=== PATIENT | female | born 1970 | race Caucasian/White ===

== ENCOUNTER 2019-01-24 03:50 | Inpatient (IN) | payer OTHER ==
[~2019-01-24] VITALS: Ht 167.6 cm; Wt 99.3 kg
[~2019-01-24 03:50] MED LIST: HCTZ; METHI10 PO; METO100 PO; METOPROLOL; NEOPOLHCSU AD; PAXIL
[2019-01-24] MEDS ORDERED: PAXIL40 MG PO (04:02)
[2019-01-24 05:02] LABS: Source, Urine Clean Catch
[2019-01-24 05:05] LABS: BASOPHILS ABSOLUTE AUTO 0.05 K/mm3 (0.00-0.23); BASOPHILS PERCENT AUTO 0 % (0-2); EOSINOPHILS PERCENT AUTO 1 % (0-6); Hemoglobin 14.2 g/dL (11.5-16.0); IMMATURE GRAN ABSOLUTE AUTO 0.03 K/mm3 (0.00-0.10); IMMATURE GRAN PERCENT AUTO 0 % (0-1); LYMPHOCYTES ABSOLUTE AUTO 2.08 K/mm3 (0.84-5.20); LYMPHOCYTES PERCENT AUTO 19 % (21-46); MONOCYTES ABSOLUTE AUTO 0.82 K/mm3 (0.16-1.47); MONOCYTES PERCENT AUTO 7 % (4-13); Mean Corpuscular HGB 34.1 pg (26.0-34.0); Mean Corpuscular HGB Conc 33.8 g/dL (31.5-36.5); Mean Corpuscular Volume 101 fL (80-100); Mean Platelet Volume 12.9 fL (9.1-12.4); NEUTROPHILS ABSOLUTE AUTO 8.13 K/mm3 (1.96-9.15); NEUTROPHILS PERCENT AUTO 73 % (41-73); Platelet Count 182 K/mm3 (150-400); RDW Standard Deviation 44.8 fL (35.1-46.3); Red Blood Cell Count 4.17 M/mm3 (3.80-5.20); White Blood Cell Count 11.21 K/mm3 (4.00-11.30)
[2019-01-24 05:07] LABS: Appearance, Urine Hazy (Clear); Bilirubin, Urine Neg (Neg); Blood, Urine Neg (Neg); Color, Urine Yellow (P-Yellow); Glucose Qualitative, Urine Neg (Neg); Ketones, Urine 1+ (Neg); Leukocyte Esterase, Urine 2+ (Neg); Nitrite, Urine Neg (Neg); Protein, Urine Neg (Neg); Specific Gravity, Urine 1.015 (1.003-1.022); Urobilinogen, Urine NORM (Normal)
[2019-01-24 05:18] LABS: U Amphetamine Screen Not Detected; U Barbituate Screen Not Detected; U Benzodiazapine Screen Not Detected; U Buprenorphine Screen Not Detected; U Cannabinoids Screen Not Detected; U Cocaine Screen Not Detected; U Methadone Screen Not Detected; U Methamphetamine Screen Not Detected; U Opiates Screen Not Detected; U Oxycodone Screen Not Detected; U Phencyclidine Screen Not Detected; U Propoxyphene Screen Not Detected
[2019-01-24 05:29] LABS: Alanine Aminotransfer (ALT/SGP 31 U/L (12-78); Albumin, Blood 3.6 g/dL (3.4-5.0); Alk Phos 81 U/L (50-136); Anion Gap 6 mmol/L (6-16); Aspartate Aminotrans (AST/SGOT 15 U/L (12-37); Bilirubin, Total 0.3 mg/dL (0.1-1.0); Blood Urea Nitrogen 10 mg/dL (8-24); CO2, Blood 26 mmol/L (21-32); Chloride, Blood 111 mmol/L (98-108); Creatinine, Blood 0.62 mg/dL (0.40-1.00); Ethanol (Alcohol), Blood, Med <3 mg/dL; Globulin, Blood 3.7 g/dL (2.2-4.0); Glomerular Filtration Rate >60 (60-); Glucose, Blood 111 mg/dL (70-99); Potassium, Blood 4.8 mmol/L (3.5-5.5); Salicylate 3.5 mg/dL (2.8-20.0); Sodium, Blood 143 mmol/L (136-145); Total Protein, Blood 7.3 g/dL (6.4-8.2)
[2019-01-24 05:32] LABS: Thyroid Stimulating Hormone <0.005 uIU/mL (0.360-4.800)
[2019-01-24 05:34] LABS: Bacteria Few /hpf; Red Blood Cells, Urine 0-2 /hpf (0-2); Squamous Epithelial Cells Many /hpf (Few)
[2019-01-24 05:37] LABS: Acetaminophen, Random <2.0 ug/mL (10.0-30.0)
--- NOTE | 2019-01-24 10:14 | NUR ---
ASSUMED CARE PT ARRIVED TO UNIT APPROX 0850 FROM ED. ROOM CLEARED AND ENVIROMENT RISK ASSESSMENT PROCESS COMPLETED PRIOR TO PT ARRIVING TO UNIT. SEE DOCUMENTATION IN PAPER CHART. ADMISSION PROCESS COMPLETED. PT VITAL SIGNS STABLE. DISCUSSED WITH PT ABOUT RISK AND WHAT PRECAUTIONS ARE BEING DONE IN ORDER TO KEEP PT SAFE. DISCUSSED WITH PT ABOUT CONTINOUS MONITORING. PT REPORTS THIS WAS HER FIRST ATTEMTP AT SUICIDE. PT REPORTS AT THIS TIME THAT SHE STILL WISHES SHE WAS . SHE REPORTS THAT HER PLAN IS TO TAKE TOO MANY PILLS TO COMPLETE THIS PROCESS. SHE REPROTS THIS IS HER ONLY PLAN AND SHE HAS NO OTHER PLAN AT THIS TIME. PT REPORTS AT THIS TIME SHE IS WORRIED ABOUT CONTACTING HER PARENTS TO TALK WITH THEM AT THIS TIME. CONTACTED CONTINOUS MONITORING WITH INFORMATION ABOUT PT AND SITUAITON. THEY WILL BE MONITORING. BATHROOM DOOR LOCKED FOR PT SAFETY. ALLOWED PT TO MAKE PHONE CALL WITH STAFF AT BEDSIDE. THEN PHONE REMOVED FROM ROOM. PHYSICIAN CURRENTLY IN ROOM. PT FAMIYL AT BEDSIDE WELL. BED IN LOW POSITION, CALL LIGHT IN REACH AND PT DENIES AYN NEEDS. WILL CONTINUE TO MONITOR.
--- NOTE | 2019-01-24 12:17 | NUR ---
NOTE THIS MORNING PT REPORTS THAT SHE IS LIKELY THAT HER BRAIN IS NOT WORKING RIGHT. SHE REPORTS THAT HER BRAIN IS TRYING TO CONVINCE HERSELF THAT PEOPLE ARE OUT IN THE HALLS LOOKING TO GET HER AND GET HER IN TROUBLE. SHE REPROTS THAT SHE FEELS THAT HER BRAIN IS NOT WORKING RIGHT. LATER: PT PARINOID ABOUT PEOPLE GETTING HER INFORMATION AND USING IT AGAINST HER. WANDERING OUT OF ROOM AND ATTEMPTING TO TAKE TELEMETRY OFF TO LEAVE. INFORMED PT SHE CAN NOT LEAVE R/T/ TWO MD HOLD AND PT STATES SHE IS GOING TO LEAVE ANYWAYS. CALLED [facility] A STAND BY. PT WAS ABLE TO BE DESCILATED AND AGREED TO STAY. A FEW MINUTES LATER PT STATES SHE IS LEAVING AGAIN AND CONTINUES TO ATTEMPT TO WALK OUT OF ROOM. BED ALARM ON, WILL CONTINUE TO MONITOR.
--- NOTE | 2019-01-24 12:35 | NUR ---
DYLAN CONTROLLED. DYLAN CONTROLLED CONTACTED STAFF. GAVE UP DATE ON PT SYMPTOMS. DYLAN CONTROL STAFF REPORS THAT BY NOW PATIENT WOULD HAVE BEEN EXPERIENCES SYMPTOMS BACK ON THE IFNORMATION THEY HAVE THEY REPORT THAT IT IS UNLILELY THAT SHE TOOK SAID MEDICATIONS. THEY REPORT THEY WILL BE CLOSING THEIR CASE WITH THE PATIENT AT THIS TIME.
--- NOTE | 2019-01-24 14:19 | NUR ---
note PT REQUESTED TO CALL FAMILY. FAMILY ARRIVED TO UNIT AND PT ATTEMPTED TO CONVINCE THEM TO TAKE HER HOME. THEY CONTINUALLY REMINDER HER THAT SHE COULD NOT GO HOME AND NEEDED TO STAY HERE TO GET HOME. DISCUSSED WITH HER THE IMPROTANCE OF IT FOR HER SAFETY. PT CONTINUED TO GET INCREASINGLY AGGITATED. AND STATES SHE WANTS TO LEAVE. PT TOOK TELEMETRY OFF. AND BEGAN WALKING DOWN THE [place] PUSHING THROUGH STAFF. ATTEMTPTING TO LEAVE. ATTEMPTED TO CALL [facility] AND WAS NOTIFIED THAT [facility] WAS NOT IN THE BUILDING. PEER STAFF WERE ABLE TO CALM PT DOWN AND AGREED TO GO BACK TO ROOM. PEER STAFF IN ROOM TALKING WITH PT FOR AWHILE. SHORTLY AFTER THIS STAFF MEMBER LEFT PT WALKED OUT. [employer] WAS ABLE TO FOLLWO PT AND CALLED [employer]. [employer] ON THE SITUATION. [employer] NOTIFIED US THAT THEY CONTACTED THE [place] [employer] TO ASSIST.
--- NOTE | 2019-01-24 14:21 | NUR ---
Patient comes out of her room, with her RN telling her to stop and that she needs to go back to her room. Patient is yelling that she can't take it, she is leaving and that no one can stop her. I am charting at the computer near the room and engage patient in the hallway and try to distract her and redirect her thinking. Patient stops and answers some of my questions, patient's 80 year old father is holding her wrist and trying to get her back to the room. Patient is finally talked into returning to her room where I provide anxiety containment and settle her to a discussion about her depression centered around not being able to land a job, about her ideal life and about her spiritism german. Patient pokes her head out of the room a few times but finally remeains in the bed with the covers wrapped around her saying that she is exhausted. A member of the care team, Kait, comes in and I leave to let them talk. I will continue to be available to patient and family.
--- NOTE | 2019-01-24 14:35 | NUR ---
NOTE PT ARRIVED PT TO UNIT ESCORTED BY SECRUITY.
--- NOTE | 2019-01-24 15:40 | NUR ---
NOTE PT CONTINUALLY WALKING TO TALK WITH STAFF ABOUT LEAVING HERE. SHE STATES SHE WILL LEAVE ONE WAY OR ANOTHER. PEER STAFF AND MYSELF ABOUT TO TALK WITH PT AND DISCUSS WHY THIS IS NOT AN OPTION AT THIS TIME. PT CONTINOUS TO DISCUSS THE SAME CONCERNS ABOUT [employer] STAFF MEMBER THAT TALKED WITH HER THIS MORNING. PT WORRIED THAT STAFF MEMBER WILL BE GETTING HER INFORMATION AND "FRAMING" HER. PT CONTINOUS TO BE DELUSIONAL AND PARANOID. WILL CONTINUE TO MONITOR.
--- NOTE | 2019-01-24 16:23 | NUR ---
note RN FROM [facility] CALLED AND TALKED WITH MYSELF. SHE WAS ABLE TO INFORM ME THAT WE NEEDED ON SIGNATURE FROM THE PHYSICIAN AND STATES THAT SHE WAS CURRENTLY TAKING PT PAPER WORKS TO THEIR PHYSICIAN TO REVIEW THE CASE AND THAT THE PHYSICIAN SHOULD BE CALLED TO SPEAK WITH OUR PHYSICIAN BEFORE LONG. SIGNATURE ACHIEVED AND FAXED OVER TO FACILITY. WILL CONTINUE TO MONITOR
--- NOTE | 2019-01-24 17:10 | NUR ---
NOTE PT SLEEPING AT THIS TIME
--- NOTE | 2019-01-24 18:42 | NUR ---
NOTE SPOKE TO RN AT RECIEVING FACILITY. AND RN REPROTS THAT PT HAS BEEN ACCEPTED TO FACILITY . NOTIFIED PMD AND COBRA TRANSFER PROCESS COMPLETED. SECURE TRANSPORT ARRANGED AND WILL BE ARRIVING APPROX. 0. REPORT CALELD TO RECIEVING RN. AND NOTIFIED OF TIME TO BE LEAVING. WILL KEEP FACILITY UPDATED ON WHEN PT DEPARTS FLOOR. WILL CONTINUE TOMONITOR UNTIL PT DEPARTS UNIT WITH PEER STAFF AND SECURE TRANSPROT STAFF.
--- NOTE | 2019-01-24 19:31 | NUR ---
shift summary STILL AWAITING TRANSPORTATION TO ARRIVE TO TAKE PT TO RECIEVING FACILITY. GAVE REPROT TO RN WHO WILL BE TAKING OVER CARE AT THIS TIME. CONTACTED RECIEIVNG FACILTIY AND THEY REPROT THEY DO NOT NEED ANY ADDITIONAL INFORMATION.
--- NOTE | 2019-01-24 19:40 | NUR ---
NOTE PT IV REMOVED AT THIS TIME. TO PREPARE TO TRANSPORT TO RECIEVING FACILITY
--- NOTE | 2019-01-24 20:06 | NUR ---
transportation COMPUTED TOMOGRAPHY TECHNICIAN ARRIVED TO UNIT. ENROBING MACHINE CORDER ABLE TO TALK WITH PT AND PT AGREED TO LEAVE TOTRANSPORT TO NEW FACILITY. PT MEDICALLY STABLE UPON DEPARTING UNIT
== END 2019-01-24 20:00 | DRG 918 ==
LOC: ER 03:50 → EOR 03:51 → PCU 06:13
PROVIDERS: ADMIT Emergency Medicine
DX: T43.222A Poisoning by selective serotonin reuptake inhibitors, intentional self-harm, initial encounter (principal); F33.3 Major depressive disorder, recurrent, severe with psychotic symptoms; T44.7X2A Poisoning by beta-adrenoreceptor antagonists, intentional self-harm, initial encounter; I10 Essential (primary) hypertension; F41.9 Anxiety disorder, unspecified; E05.90 Thyrotoxicosis, unspecified without thyrotoxic crisis or storm; F17.210 Nicotine dependence, cigarettes, uncomplicated
CPT/HCPCS: 80053; 81001; 81025; 84443; 85025; 87077; 87086; 93005; 93010; 99285-25; G0480

== ENCOUNTER 2019-02-04 17:15 | Inpatient (IN) | payer OTHER ==
[~2019-02-04] VITALS: Ht 167.6 cm; Wt 101.2 kg
[~2019-02-04 17:15] MED LIST changes: +PAXIL40 MG PO
[2019-02-04 17:47] LABS: BASOPHILS ABSOLUTE AUTO 0.04 K/mm3 (0.00-0.23); BASOPHILS PERCENT AUTO 0 % (0-2); EOSINOPHILS ABSOLUTE AUTO 0.04 K/mm3 (0.00-0.68); EOSINOPHILS PERCENT AUTO 0 % (0-6); Hematocrit 42.6 % (33.0-51.0); Hemoglobin 14.6 g/dL (11.5-16.0); IMMATURE GRAN ABSOLUTE AUTO 0.04 K/mm3 (0.00-0.10); IMMATURE GRAN PERCENT AUTO 0 % (0-1); LYMPHOCYTES ABSOLUTE AUTO 1.24 K/mm3 (0.84-5.20); LYMPHOCYTES PERCENT AUTO 9 % (21-46); MONOCYTES ABSOLUTE AUTO 0.87 K/mm3 (0.16-1.47); MONOCYTES PERCENT AUTO 6 % (4-13); Mean Corpuscular HGB 33.6 pg (26.0-34.0); Mean Corpuscular HGB Conc 34.3 g/dL (31.5-36.5); Mean Corpuscular Volume 98 fL (80-100); Mean Platelet Volume 12.6 fL (9.1-12.4); NEUTROPHILS ABSOLUTE AUTO 11.38 K/mm3 (1.96-9.15); NEUTROPHILS PERCENT AUTO 84 % (41-73); Platelet Count 203 K/mm3 (150-400); RDW Coefficient Variation 11.8 % (11.7-14.2); RDW Standard Deviation 42.5 fL (35.1-46.3); Red Blood Cell Count 4.35 M/mm3 (3.80-5.20); White Blood Cell Count 13.61 K/mm3 (4.00-11.30)
[2019-02-04] MEDS ORDERED: METO100 PO (17:56)
[2019-02-04 18:17] LABS: Alanine Aminotransfer (ALT/SGP 51 U/L (12-78); Albumin, Blood 3.7 g/dL (3.4-5.0); Albumin/Globulin Ratio 0.8 (0.8-1.8); Alk Phos 84 U/L (50-136); Anion Gap 10 mmol/L (6-16); Aspartate Aminotrans (AST/SGOT 20 U/L (12-37); Bilirubin, Total 0.2 mg/dL (0.1-1.0); Blood Urea Nitrogen 7 mg/dL (8-24); Bun/Creatinine Ratio 11.9 (12.0-20.0); CO2, Blood 23 mmol/L (21-32); Calcium, Blood 8.9 mg/dL (8.5-10.1); Chloride, Blood 104 mmol/L (98-108); Creatinine, Blood 0.59 mg/dL (0.40-1.00); Globulin, Blood 4.4 g/dL (2.2-4.0); Glomerular Filtration Rate >60 (60-); Glucose, Blood 159 mg/dL (70-99); Potassium, Blood 3.7 mmol/L (3.5-5.5); Sodium, Blood 137 mmol/L (136-145); Total Protein, Blood 8.1 g/dL (6.4-8.2); Troponin I <0.015 ng/mL (0.000-0.040)
[2019-02-04 18:23] LABS: Ethanol (Alcohol), Blood, Med <3 mg/dL; Salicylate 1.9 mg/dL (2.8-20.0)
[2019-02-04 18:30] LABS: Acetaminophen, Random <2.0 ug/mL (10.0-30.0)
[2019-02-04 19:04] LABS: U Amphetamine Screen Not Detected; U Barbituate Screen Not Detected; U Benzodiazapine Screen DETECTED; U Buprenorphine Screen Not Detected; U Cannabinoids Screen Not Detected; U Cocaine Screen Not Detected; U Methadone Screen Not Detected; U Methamphetamine Screen Not Detected; U Opiates Screen Not Detected; U Oxycodone Screen Not Detected; U Phencyclidine Screen Not Detected; U Propoxyphene Screen Not Detected
--- NOTE | 2019-02-04 20:35 | NUR ---
ADMIT NOTE: 48 YEAR OLD FEMALE ADMIT TO ICU 3 TO HOSPITALIST SERVICE PER WHEELCHAIR, VIA ED. CIVAL RIGHTS READ AND SIGNED MD HOLD AND CAMERA EXPLAINED TO BRANDY. PLEASEANT COOPERATIVE CALM POLITE GAIT STEADY TO BED. MONITOR PLACED SHOWING SINUS RHYTHM. HEART RATE 80'S. LUNG SOUNDS CLEAR RESPIRATIONS REGULAR AND EASY ON ROOM AIR SPO2 95-97%. ABDOMEN SOFT NON TENDER WITH BOWEL SOUNDS FOUR QUADS. SMALL AMTS DK CHARCOAL STOOL FREQUENTLY PASSING FLATUS. GAIT STEADY WITH MIN. ASSIST. SKIN WARM/DRY PEDAL PULSES PRESENT NO EDEMA NOTED. CONTINUE TO MONITOR AND REPORT CHANGE IN PATIENT CONDITION BLOOD CONSENT AND RELEASE OF MEDICAL INFORMATION COMPLETED
--- NOTE | 2019-02-05 01:25 | NUR ---
DR NOTIFIED HOSPITALIST DR PETTY NOTIFIED AFTER SPEAKING WITH POISON CONTROL ALSO NOTIFIED OF CONTINUES INCREASED B/P. ORDERS NOTED CONTINUE TO MONITOR AND REPORT CHANGE IN PATIENT CONDITION
[2019-02-05 03:03] LABS: BASOPHILS ABSOLUTE AUTO 0.03 K/mm3 (0.00-0.23); BASOPHILS PERCENT AUTO 0 % (0-2); EOSINOPHILS PERCENT AUTO 0 % (0-6); Hematocrit 40.3 % (33.0-51.0); Hemoglobin 13.7 g/dL (11.5-16.0); IMMATURE GRAN ABSOLUTE AUTO 0.07 K/mm3 (0.00-0.10); IMMATURE GRAN PERCENT AUTO 1 % (0-1); LYMPHOCYTES ABSOLUTE AUTO 1.41 K/mm3 (0.84-5.20); LYMPHOCYTES PERCENT AUTO 10 % (21-46); MONOCYTES ABSOLUTE AUTO 0.56 K/mm3 (0.16-1.47); MONOCYTES PERCENT AUTO 4 % (4-13); Mean Corpuscular HGB 33.7 pg (26.0-34.0); Mean Corpuscular Volume 99 fL (80-100); NEUTROPHILS ABSOLUTE AUTO 12.15 K/mm3 (1.96-9.15); NEUTROPHILS PERCENT AUTO 86 % (41-73); Platelet Count 220 K/mm3 (150-400); RDW Coefficient Variation 11.9 % (11.7-14.2); RDW Standard Deviation 43.7 fL (35.1-46.3); Red Blood Cell Count 4.06 M/mm3 (3.80-5.20); White Blood Cell Count 14.22 K/mm3 (4.00-11.30)
[2019-02-05 03:26] LABS: Alanine Aminotransfer (ALT/SGP 45 U/L (12-78); Albumin, Blood 3.4 g/dL (3.4-5.0); Albumin/Globulin Ratio 0.8 (0.8-1.8); Alk Phos 73 U/L (50-136); Anion Gap 9 mmol/L (6-16); Aspartate Aminotrans (AST/SGOT 19 U/L (12-37); Bilirubin, Total 0.3 mg/dL (0.1-1.0); Blood Urea Nitrogen 6 mg/dL (8-24); Bun/Creatinine Ratio 11.3 (12.0-20.0); CO2, Blood 21 mmol/L (21-32); Calcium, Blood 8.7 mg/dL (8.5-10.1); Chloride, Blood 111 mmol/L (98-108); Creatinine, Blood 0.53 mg/dL (0.40-1.00); Free Thyroxine 1.44 ng/dL (0.70-1.60); Glomerular Filtration Rate >60 (60-); Glucose, Blood 138 mg/dL (70-99); Potassium, Blood 3.8 mmol/L (3.5-5.5); Salicylate <1.7 mg/dL (2.8-20.0); Sodium, Blood 141 mmol/L (136-145); Total Protein, Blood 7.4 g/dL (6.4-8.2)
[2019-02-05 03:28] LABS: Thyroid Stimulating Hormone <0.005 uIU/mL (0.360-4.800); Triiodothyronine, Free 3.32 pg/mL (2.18-3.98)
--- NOTE | 2019-02-05 06:02 | NUR ---
SHIFT SUMMARY HAS NOT RESTED ALL NOC CALLS OUT FREQUENTLY OR USES CALL LIGHT. MONITOR INTACT SHOWING SINUS RHYTHM HEART RATE 80'S. LUNGS SOUNDS CLEAR. RESPRIATIONS REGULAR AND EASY ON ROOM AIR. SPOT CHECK SPO2 95+97% ABDOMEN SOFT WITH BOWEL SOUNDS FOUR QUADS. VOIDS KARYN CLEAR URINE. PASSES FLATUS. SKIN WARM/DRY/INTACT NO EDEMA NOTED. PERIODS OF ANXIETY "I"m SCARED" "CAN YOU STAY IN HERE WITH ME?" GAIT STEADY TO TOILET . TOLERATES CLEAR LIQUIDS WELL. CONTINUE TO MONITOR AND REPORT CHANGE IN PATIENT CONDITION
--- NOTE | 2019-02-05 07:48 | NUR ---
ASSUMED CARE: RECEIVED REPORT FROM NOC RN. NO ACCUTE DISTRESS NOTED. PT SITTING UP IN THE BED. GREETS AND IS SMILING AT STAFF UPON ENTERING ROOM. PT REQUEST TO GET UP TO THE TOILET WHILE THIS RN IS IN THE ROOM. SHAHAB DRAWN AND PT GETS UP TO THE TOILET INDEPENDENTLY MANAGING CORDS INDEPENDENTLY, GAIT IS STEADY. THIS RN EDUCATES PT ABOUT BEOMG ON CAMERA. THIR RN GIVES PERMISSION FOR PT TO GET UP TO THE TOILET INDEPENDENTLY WITHOUT STAFF IN THE ROOM. LONG PT IS COOPERATE WITH CARE SHE CAN INDEPENDENTLY CLOSE SHAHAB, USE TOILET, OPEN SHAHAB AND RETURN TO THE BED. EDUCATED ON FALL PREVENTION AND RISK. REMOTE MONITORING AND DOOR PATCHER NOTIFED OF THIS PLAN OF CARE. PT REQUESTING TO BE TAKEN OFF HOLD, EDUCATED DR OSORIO IS THE ONLY ONE ABLE TO DROP THE HOLD. CALL LIGHT IN REACH.
--- NOTE | 2019-02-05 11:50 | NUR ---
DR OSORIO: CALLED TO [facility] CH WOULD BE COMING TO SEE THE PT TODAY. DR OSORIO IN THE ROOM TALKING TO THE PT NOW.
--- NOTE | 2019-02-05 15:00 | NUR ---
PT ARRIVED TO ROOM 350 FROM ICU. ROOM ARRANGED FOR SI. DISPOSABLE CLOTHING PROVIDED FOR PT TO WEAR. MONITERING BY CAMERA. PLEASANT AND COOPERATIVE. COMES TO DOOR TO ASK FOR HELP.
--- NOTE | 2019-02-05 17:56 | NUR ---
SHIFT SUMMARY PT HAS BEEN COOPERATIVE AND ASKING FOR HELP FROM DOORWAY. ATE SUPPER AND WATCHING TV. HAS HAD NO COMMENTS ABOUT SUICIDE OR WANTING HER LIFE TO END.
--- NOTE | 2019-02-06 05:11 | NUR ---
SHIFT SUMMARY PT ON 2 MD HOLD. A/O INDEPENDENT HAPPY CALM COOPERATIVE PLEASANT. HAD FOUL SMELLING DRAINAGE FROM [employer] LOOKING THING UNDER ABD FOLD. DRESSED IT WITH EXUDRY AND MEDIPORE TAPE. SHE WAS ABLE TO SLEEP T/O NIGHT. POLITLY ASKING TO USE BA WHEN SHE NEEDS IT. CALL LIGHT IN REACH.
--- NOTE | 2019-02-06 14:00 | NUR ---
PT HAS BEEN INDEPENDENT IN ROOM. CRYSTAL FROM [facility] WAS CALLED AND REPORT GIVEN. TENTATIVE PLANS FOR PT TO DISCHARGE THERE TODAY. PARENTS HERE TO VISIT EARLIER. CONCERNED ABOUT WHERE PT WAS GOING AND WHEN. PT HAS BEEN CHEERFUL AND APPROPRIATE. SHOWER TAKEN.
[2019-02-06 15:17] LABS: Source, Urine Clean Catch
[2019-02-06 15:28] LABS: Bilirubin, Urine Neg (Neg); Blood, Urine Neg (Neg); Glucose Qualitative, Urine Neg (Neg); Ketones, Urine Neg (Neg); Leukocyte Esterase, Urine Neg (Neg); Nitrite, Urine Neg (Neg); Protein, Urine Neg (Neg); Urobilinogen, Urine NORM (Normal)
[2019-02-06 15:39] LABS: Appearance, Urine Clear (Clear); Color, Urine Pale Yellow (P-Yellow)
--- NOTE | 2019-02-06 18:30 | NUR ---
SECURE TRANSPORT HERE AT 1815 TO PICK PT UP AND TRANSPORT TO [facility]. FAMILY HAD BROUGHT CLOTHING AND TOILETRIES FROM HOME. DISCUSSED WITH PT CONCERN ABOUT GOING THERE WHILE PARENTS ARE TRAVELING [place] AND WHETHER SHE WOULD BE DISCHARGE WITH NOWHERE TO GO. SPOKE WITH SAHARA AND MAVIS RICHMOND AND SHE REPORTED PT WOULD BE ABLE TO STAY TIL PARENTS RETURNED. EXPLAINED TO PT SHE WAS EXPECTED TO REMAIN THERE TIL PARENTS RETURNED AND THAT THE FACILITY WOULD NOT PROVIDE TRANSPORTATION BACK TO [place] AND THAT SHE WOULDN'T GET A CAMEJO TO GET INTO PARENTS HOME WHILE THEY ARE GONE BUT SHE IS TO GET THE MOST BENEFIT FROM THE VIST POSSIBLE. PT AGREEABLE. TO CURB VIA W/C.
== END 2019-02-06 18:25 | DRG 918 ==
LOC: ER 17:15 → ICUE 18:25 → ICUW 18:25 → ICUE 20:03 → ICUW 02-05 12:55 → MEDS 02-05 15:25
PROVIDERS: Emergency Medicine; ADMIT Internal Medicine
DX: T43.222A Poisoning by selective serotonin reuptake inhibitors, intentional self-harm, initial encounter (principal); F33.9 Major depressive disorder, recurrent, unspecified; L03.311 Cellulitis of abdominal wall; T44.7X2A Poisoning by beta-adrenoreceptor antagonists, intentional self-harm, initial encounter; I10 Essential (primary) hypertension; E05.90 Thyrotoxicosis, unspecified without thyrotoxic crisis or storm; F17.210 Nicotine dependence, cigarettes, uncomplicated
CPT/HCPCS: 36415; 71045; 80053; 81003; 81025; 83735; 84439; 84443; 84481; 84484; 85025; 93005; 93010; 96360; 99285-25; G0480; J0360; J1650; J7030; Q0163

== ENCOUNTER 2019-03-16 13:10 | Emergency (ER) | payer OTHER ==
[~2019-03-16] VITALS: Ht 167.6 cm; Wt 104.3 kg
[2019-03-16] MEDS ORDERED: LORA2 PO (14:34)
== END 2019-03-16 14:43 | disposition home or self-care (01) ==
LOC: ER 13:10
DX: F41.9 Anxiety disorder, unspecified (principal); F32.9 Major depressive disorder, single episode, unspecified; E05.90 Thyrotoxicosis, unspecified without thyrotoxic crisis or storm; I10 Essential (primary) hypertension; F17.210 Nicotine dependence, cigarettes, uncomplicated; Z79.899 Other long term (current) drug therapy
CPT/HCPCS: 99282

== ENCOUNTER 2019-03-19 16:07 | Emergency (ER) | payer OTHER ==
[~2019-03-19] VITALS: Ht 167.6 cm; Wt 104.3 kg
[~2019-03-19 16:07] MED LIST changes: +LORA2 PO
[2019-03-19] MEDS ORDERED: RISP1 PO (19:19)
== END 2019-03-19 19:40 | disposition home or self-care (01) ==
LOC: ER 16:07
DX: F32.9 Major depressive disorder, single episode, unspecified (principal); E03.9 Hypothyroidism, unspecified; I10 Essential (primary) hypertension; F17.210 Nicotine dependence, cigarettes, uncomplicated; Z79.899 Other long term (current) drug therapy
CPT/HCPCS: 99284; Q3014

== ENCOUNTER 2019-03-29 09:58 | Observation (INO) | payer OTHER ==
[~2019-03-29] VITALS: Ht 167.6 cm; Wt 104.3 kg
[~2019-03-29 09:58] MED LIST changes: +RISP1 PO
[2019-03-29 10:23] LABS: Source, Urine Voided
[2019-03-29 10:29] LABS: Bilirubin, Urine Neg (Neg); Blood, Urine 1+ (Neg); Glucose Qualitative, Urine Neg (Neg); Ketones, Urine 1+ (Neg); Leukocyte Esterase, Urine 1+ (Neg); Nitrite, Urine Neg (Neg); Protein, Urine 1+ (Neg); Specific Gravity, Urine 1.015 (1.003-1.022); Urobilinogen, Urine 1+ (Normal)
[2019-03-29 10:36] LABS: Appearance, Urine Clear (Clear); Color, Urine Amber (P-Yellow)
[2019-03-29 10:37] LABS: BASOPHILS ABSOLUTE AUTO 0.02 K/mm3 (0.00-0.23); BASOPHILS PERCENT AUTO 0 % (0-2); EOSINOPHILS ABSOLUTE AUTO 0.01 K/mm3 (0.00-0.68); EOSINOPHILS PERCENT AUTO 0 % (0-6); Hematocrit 39.6 % (33.0-51.0); Hemoglobin 13.4 g/dL (11.5-16.0); IMMATURE GRAN ABSOLUTE AUTO 0.02 K/mm3 (0.00-0.10); IMMATURE GRAN PERCENT AUTO 0 % (0-1); LYMPHOCYTES ABSOLUTE AUTO 0.99 K/mm3 (0.84-5.20); LYMPHOCYTES PERCENT AUTO 14 % (21-46); MONOCYTES ABSOLUTE AUTO 0.55 K/mm3 (0.16-1.47); MONOCYTES PERCENT AUTO 8 % (4-13); Mean Corpuscular HGB 32.8 pg (26.0-34.0); Mean Corpuscular HGB Conc 33.8 g/dL (31.5-36.5); Mean Corpuscular Volume 97 fL (80-100); Mean Platelet Volume 11.5 fL (9.1-12.4); NEUTROPHILS ABSOLUTE AUTO 5.45 K/mm3 (1.96-9.15); NEUTROPHILS PERCENT AUTO 77 % (41-73); Platelet Count 245 K/mm3 (150-400); RDW Coefficient Variation 10.7 % (11.7-14.2); RDW Standard Deviation 38.8 fL (35.1-46.3); Red Blood Cell Count 4.08 M/mm3 (3.80-5.20); White Blood Cell Count 7.04 K/mm3 (4.00-11.30)
[2019-03-29 10:38] LABS: Bacteria Few /hpf; Mucus Light (0-Heavy); Squamous Epithelial Cells Mod /hpf (Few)
[2019-03-29 10:51] LABS: U Amphetamine Screen Not Detected; U Barbituate Screen Not Detected; U Benzodiazapine Screen DETECTED; U Buprenorphine Screen Not Detected; U Cannabinoids Screen Not Detected; U Cocaine Screen Not Detected; U Methadone Screen Not Detected; U Methamphetamine Screen Not Detected; U Opiates Screen Not Detected; U Oxycodone Screen Not Detected; U Phencyclidine Screen Not Detected; U Propoxyphene Screen Not Detected
[2019-03-29 10:54] LABS: Alanine Aminotransfer (ALT/SGP 34 U/L (12-78); Albumin, Blood 3.4 g/dL (3.4-5.0); Albumin/Globulin Ratio 0.9 (0.8-1.8); Alk Phos 40 U/L (50-136); Anion Gap 5 mmol/L (6-16); Aspartate Aminotrans (AST/SGOT 13 U/L (12-37); Bilirubin, Total 0.3 mg/dL (0.1-1.0); Blood Urea Nitrogen 7 mg/dL (8-24); Bun/Creatinine Ratio 12.2 (12.0-20.0); CO2, Blood 24 mmol/L (21-32); Calcium, Blood 8.6 mg/dL (8.5-10.1); Chloride, Blood 109 mmol/L (98-108); Creatinine, Blood 0.57 mg/dL (0.40-1.00); Ethanol (Alcohol), Blood, Med <3 mg/dL; Globulin, Blood 3.9 g/dL (2.2-4.0); Glomerular Filtration Rate >60 (60-); Glucose, Blood 114 mg/dL (70-99); Potassium, Blood 4.1 mmol/L (3.5-5.5); Salicylate <1.7 mg/dL (2.8-20.0); Sodium, Blood 138 mmol/L (136-145); Total Protein, Blood 7.3 g/dL (6.4-8.2)
[2019-03-29 11:01] LABS: Acetaminophen, Random <2.0 ug/mL (10.0-30.0)
== END 2019-03-29 13:57 | disposition home or self-care (01) ==
LOC: ER 09:58 → EOR 09:59
PROVIDERS: ADMIT Emergency Medicine
DX: F30.9 Manic episode, unspecified (principal); F41.9 Anxiety disorder, unspecified; S61.512A Laceration without foreign body of left wrist, initial encounter; S61.511A Laceration without foreign body of right wrist, initial encounter; I10 Essential (primary) hypertension; E03.9 Hypothyroidism, unspecified; J45.909 Unspecified asthma, uncomplicated; Z79.899 Other long term (current) drug therapy; Z87.891 Personal history of nicotine dependence; X78.8XXA Intentional self-harm by other sharp object, initial encounter
CPT/HCPCS: 80053; 81001; 81025; 85025; 87086; 99285; G0378; G0480; Q3014

== ENCOUNTER 2019-04-24 13:28 | Observation (INO) | payer OTHER ==
[~2019-04-24] VITALS: Ht 167.6 cm; Wt 104.3 kg
[2019-04-24 14:33] LABS: Source, Urine Clean Catch
[2019-04-24 14:41] LABS: BASOPHILS ABSOLUTE AUTO 0.01 K/mm3 (0.00-0.23); BASOPHILS PERCENT AUTO 0 % (0-2); Bilirubin, Urine Neg (Neg); Blood, Urine Neg (Neg); EOSINOPHILS ABSOLUTE AUTO 0.01 K/mm3 (0.00-0.68); EOSINOPHILS PERCENT AUTO 0 % (0-6); Glucose Qualitative, Urine Neg (Neg); Hematocrit 39.5 % (33.0-51.0); Hemoglobin 13.3 g/dL (11.5-16.0); IMMATURE GRAN ABSOLUTE AUTO 0.01 K/mm3 (0.00-0.10); IMMATURE GRAN PERCENT AUTO 0 % (0-1); Ketones, Urine Neg (Neg); LYMPHOCYTES ABSOLUTE AUTO 0.94 K/mm3 (0.84-5.20); LYMPHOCYTES PERCENT AUTO 17 % (21-46); Leukocyte Esterase, Urine Neg (Neg); MONOCYTES ABSOLUTE AUTO 0.42 K/mm3 (0.16-1.47); MONOCYTES PERCENT AUTO 7 % (4-13); Mean Corpuscular HGB 32.6 pg (26.0-34.0); Mean Corpuscular HGB Conc 33.7 g/dL (31.5-36.5); Mean Corpuscular Volume 97 fL (80-100); Mean Platelet Volume 12.5 fL (9.1-12.4); NEUTROPHILS ABSOLUTE AUTO 4.32 K/mm3 (1.96-9.15); NEUTROPHILS PERCENT AUTO 76 % (41-73); Nitrite, Urine Neg (Neg); Platelet Count 183 K/mm3 (150-400); Protein, Urine 1+ (Neg); RDW Coefficient Variation 10.6 % (11.7-14.2); Red Blood Cell Count 4.08 M/mm3 (3.80-5.20); Specific Gravity, Urine 1.015 (1.003-1.022); Urobilinogen, Urine NORM (Normal); White Blood Cell Count 5.71 K/mm3 (4.00-11.30); pH, Urine 6.5 (5.0-8.0)
[2019-04-24 14:56] LABS: Alanine Aminotransfer (ALT/SGP 39 U/L (12-78); Albumin, Blood 3.2 g/dL (3.4-5.0); Albumin/Globulin Ratio 0.9 (0.8-1.8); Alk Phos 32 U/L (50-136); Anion Gap 7 mmol/L (6-16); Aspartate Aminotrans (AST/SGOT 19 U/L (12-37); Bilirubin, Total 0.3 mg/dL (0.1-1.0); Blood Urea Nitrogen 12 mg/dL (8-24); Bun/Creatinine Ratio 19.4 (12.0-20.0); CO2, Blood 26 mmol/L (21-32); Calcium, Blood 8.5 mg/dL (8.5-10.1); Chloride, Blood 108 mmol/L (98-108); Creatinine, Blood 0.62 mg/dL (0.40-1.00); Ethanol (Alcohol), Blood, Med <3 mg/dL; Globulin, Blood 3.7 g/dL (2.2-4.0); Glomerular Filtration Rate >60 (60-); Glucose, Blood 179 mg/dL (70-99); Potassium, Blood 3.5 mmol/L (3.5-5.5); Salicylate <1.7 mg/dL (2.8-20.0); Sodium, Blood 141 mmol/L (136-145); Total Protein, Blood 6.9 g/dL (6.4-8.2)
[2019-04-24 14:59] LABS: Color, Urine Yellow (P-Yellow)
[2019-04-24 15:00] LABS: Acetaminophen, Random <2.0 ug/mL (10.0-30.0); Appearance, Urine Clear (Clear)
[2019-04-24 15:20] LABS: U Amphetamine Screen Not Detected; U Barbituate Screen Not Detected; U Benzodiazapine Screen Not Detected; U Buprenorphine Screen Not Detected; U Cannabinoids Screen Not Detected; U Cocaine Screen Not Detected; U Methadone Screen Not Detected; U Methamphetamine Screen Not Detected; U Opiates Screen Not Detected; U Oxycodone Screen Not Detected; U Phencyclidine Screen Not Detected; U Propoxyphene Screen Not Detected
[2019-04-24] MEDS ORDERED: LORA2 PO (17:16)
== END 2019-04-24 17:32 | disposition home or self-care (01) ==
LOC: ER 13:28 → EOR 13:29
PROVIDERS: Physician Assistant; ADMIT Emergency Medicine
DX: F31.9 Bipolar disorder, unspecified (principal); F41.9 Anxiety disorder, unspecified; I10 Essential (primary) hypertension; J45.909 Unspecified asthma, uncomplicated; E21.3 Hyperparathyroidism, unspecified; E66.9 Obesity, unspecified; Z68.35 Body mass index [BMI] 35.0-35.9, adult; Z79.899 Other long term (current) drug therapy; Z87.891 Personal history of nicotine dependence
CPT/HCPCS: 36415; 80053; 81025; 84443; 85025; 99285; G0378; G0480

== ENCOUNTER 2019-04-26 10:56 | Observation (INO) | payer OTHER ==
[~2019-04-26] VITALS: Ht 167.6 cm; Wt 104.3 kg
[2019-04-26 11:31] LABS: Source, Urine Clean Catch
[2019-04-26 11:39] LABS: Bilirubin, Urine Neg (Neg); Blood, Urine 1+ (Neg); Glucose Qualitative, Urine Neg (Neg); Ketones, Urine 2+ (Neg); Leukocyte Esterase, Urine 1+ (Neg); Nitrite, Urine Neg (Neg); Protein, Urine 1+ (Neg); Specific Gravity, Urine 1.015 (1.003-1.022); Urobilinogen, Urine 2+ (Normal)
[2019-04-26 11:45] LABS: Appearance, Urine Hazy (Clear); Color, Urine Yellow (P-Yellow)
[2019-04-26 11:47] LABS: Red Blood Cells, Urine 0-2 /hpf (0-2); Squamous Epithelial Cells Mod /hpf (Few)
[2019-04-26 11:48] LABS: Bacteria Mod /hpf
[2019-04-26 11:51] LABS: U Amphetamine Screen Not Detected; U Barbituate Screen Not Detected; U Benzodiazapine Screen Not Detected; U Buprenorphine Screen Not Detected; U Cannabinoids Screen Not Detected; U Cocaine Screen Not Detected; U Methadone Screen Not Detected; U Methamphetamine Screen Not Detected; U Opiates Screen Not Detected; U Oxycodone Screen Not Detected; U Phencyclidine Screen Not Detected; U Propoxyphene Screen Not Detected
[2019-04-26 12:16] LABS: BASOPHILS ABSOLUTE AUTO 0.02 K/mm3 (0.00-0.23); BASOPHILS PERCENT AUTO 0 % (0-2); EOSINOPHILS ABSOLUTE AUTO 0.03 K/mm3 (0.00-0.68); EOSINOPHILS PERCENT AUTO 1 % (0-6); Hematocrit 39.5 % (33.0-51.0); Hemoglobin 13.1 g/dL (11.5-16.0); IMMATURE GRAN ABSOLUTE AUTO 0.01 K/mm3 (0.00-0.10); IMMATURE GRAN PERCENT AUTO 0 % (0-1); LYMPHOCYTES ABSOLUTE AUTO 0.81 K/mm3 (0.84-5.20); LYMPHOCYTES PERCENT AUTO 14 % (21-46); MONOCYTES PERCENT AUTO 5 % (4-13); Mean Corpuscular HGB 32.2 pg (26.0-34.0); Mean Corpuscular HGB Conc 33.2 g/dL (31.5-36.5); Mean Corpuscular Volume 97 fL (80-100); Mean Platelet Volume 12.4 fL (9.1-12.4); NEUTROPHILS ABSOLUTE AUTO 4.78 K/mm3 (1.96-9.15); NEUTROPHILS PERCENT AUTO 80 % (41-73); Platelet Count 198 K/mm3 (150-400); RDW Coefficient Variation 10.8 % (11.7-14.2); RDW Standard Deviation 38.6 fL (35.1-46.3); Red Blood Cell Count 4.07 M/mm3 (3.80-5.20); White Blood Cell Count 5.95 K/mm3 (4.00-11.30)
[2019-04-26 12:35] LABS: Acetaminophen, Random <2.0 ug/mL (10.0-30.0); Alanine Aminotransfer (ALT/SGP 40 U/L (12-78); Albumin, Blood 3.2 g/dL (3.4-5.0); Albumin/Globulin Ratio 0.9 (0.8-1.8); Alk Phos 32 U/L (50-136); Anion Gap 7 mmol/L (6-16); Aspartate Aminotrans (AST/SGOT 19 U/L (12-37); Bilirubin, Total 0.4 mg/dL (0.1-1.0); Blood Urea Nitrogen 12 mg/dL (8-24); Bun/Creatinine Ratio 25.5 (12.0-20.0); CO2, Blood 24 mmol/L (21-32); Calcium, Blood 8.9 mg/dL (8.5-10.1); Chloride, Blood 110 mmol/L (98-108); Creatinine, Blood 0.47 mg/dL (0.40-1.00); Ethanol (Alcohol), Blood, Med <3 mg/dL; Globulin, Blood 3.7 g/dL (2.2-4.0); Glomerular Filtration Rate >60 (60-); Glucose, Blood 121 mg/dL (70-99); Potassium, Blood 3.8 mmol/L (3.5-5.5); Salicylate <1.7 mg/dL (2.8-20.0); Sodium, Blood 141 mmol/L (136-145); Total Protein, Blood 6.9 g/dL (6.4-8.2)
[2019-04-26] MEDS ORDERED: PARO10 PO (13:44)
[2019-04-26] MEDS ORDERED: LORAZEPAM0.5 MG PO (13:47)
[2019-04-26] MEDS ORDERED: REXULTI0.5 MG PO (13:47)
[2019-04-26] MEDS ORDERED: JUNEL FE 24 TA1 EACH PO (13:48)
[2019-04-26 14:56] LABS: Free Thyroxine 4.66 ng/dL (0.70-1.60)
[2019-04-26 14:57] LABS: Triiodothyronine, Free 14.06 pg/mL (2.18-3.98)
== END 2019-04-28 09:22 | disposition home or self-care (01) ==
LOC: ER 10:56 → EOR 10:57
PROVIDERS: Emergency Medicine; ADMIT Emergency Medicine
DX: F33.3 Major depressive disorder, recurrent, severe with psychotic symptoms (principal); S61.512A Laceration without foreign body of left wrist, initial encounter; S61.511A Laceration without foreign body of right wrist, initial encounter; F41.9 Anxiety disorder, unspecified; F17.210 Nicotine dependence, cigarettes, uncomplicated; I10 Essential (primary) hypertension; E03.9 Hypothyroidism, unspecified; J45.909 Unspecified asthma, uncomplicated; Z79.899 Other long term (current) drug therapy; X83.8XXA Intentional self-harm by other specified means, initial encounter
CPT/HCPCS: 12004; 80053; 81001; 81025; 84439; 84443; 84481; 85025; 87086; 90471; 90714; 99285-25; A9270; G0378; G0480; Q3014

== ENCOUNTER 2019-05-12 11:33 | Observation (INO) | payer OTHER ==
[~2019-05-12] VITALS: Ht 167.6 cm; Wt 104.3 kg
[~2019-05-12 11:33] MED LIST changes: +JUNEL FE 24 TA1 EACH PO; +LORAZEPAM0.5 MG PO; +PARO10 PO; +REXULTI0.5 MG PO
[2019-05-12] MEDS ORDERED: METO100ER PO ×2 (15:07→17:32)
[2019-05-12] MEDS ORDERED: PARO10 PO (15:08)
[2019-05-12] MEDS ORDERED: CLIMARA1 EACH TOP ×2 (15:09→17:33)
[2019-05-12] MEDS ORDERED: Vistaril50 MG PO (15:10)
[2019-05-12] MEDS ORDERED: METHI10 PO ×2 (15:10→17:32)
[2019-05-12 15:11] LABS: Source, Urine Clean Catch
[2019-05-12] MEDS ORDERED: Risperidone1 MG PO (15:11)
[2019-05-12] MEDS ORDERED: LATUDA60 MG PO (15:11)
[2019-05-12 15:14] LABS: Bilirubin, Urine Neg (Neg); Blood, Urine Neg (Neg); Glucose Qualitative, Urine Neg (Neg); Ketones, Urine Neg (Neg); Leukocyte Esterase, Urine Neg (Neg); Nitrite, Urine Neg (Neg); Protein, Urine Neg (Neg); Specific Gravity, Urine 1.015 (1.003-1.022); Urobilinogen, Urine NORM (Normal)
[2019-05-12 15:18] LABS: BASOPHILS ABSOLUTE AUTO 0.02 K/mm3 (0.00-0.23); BASOPHILS PERCENT AUTO 0 % (0-2); EOSINOPHILS ABSOLUTE AUTO 0.02 K/mm3 (0.00-0.68); EOSINOPHILS PERCENT AUTO 0 % (0-6); IMMATURE GRAN PERCENT AUTO 0 % (0-1); LYMPHOCYTES ABSOLUTE AUTO 1.28 K/mm3 (0.84-5.20); LYMPHOCYTES PERCENT AUTO 21 % (21-46); MONOCYTES ABSOLUTE AUTO 0.41 K/mm3 (0.16-1.47); MONOCYTES PERCENT AUTO 7 % (4-13); Mean Corpuscular HGB Conc 34.1 g/dL (31.5-36.5); Mean Corpuscular Volume 94 fL (80-100); Mean Platelet Volume 11.9 fL (9.1-12.4); NEUTROPHILS ABSOLUTE AUTO 4.24 K/mm3 (1.96-9.15); NEUTROPHILS PERCENT AUTO 71 % (41-73); Platelet Count 217 K/mm3 (150-400); RDW Standard Deviation 37.2 fL (35.1-46.3); Red Blood Cell Count 4.37 M/mm3 (3.80-5.20); White Blood Cell Count 5.97 K/mm3 (4.00-11.30)
[2019-05-12 15:29] LABS: Appearance, Urine Clear (Clear); Color, Urine Yellow (P-Yellow)
[2019-05-12 15:36] LABS: U Amphetamine Screen Not Detected; U Barbituate Screen Not Detected; U Benzodiazapine Screen Not Detected; U Cannabinoids Screen Not Detected; U Cocaine Screen Not Detected; U Methadone Screen Not Detected; U Methamphetamine Screen Not Detected; U Opiates Screen Not Detected; U Phencyclidine Screen Not Detected
[2019-05-12 15:37] LABS: U Buprenorphine Screen Not Detected; U Oxycodone Screen Not Detected; U Propoxyphene Screen Not Detected
[2019-05-12 15:38] LABS: Alanine Aminotransfer (ALT/SGP 43 U/L (12-78); Albumin, Blood 3.3 g/dL (3.4-5.0); Albumin/Globulin Ratio 0.9 (0.8-1.8); Alk Phos 34 U/L (50-136); Anion Gap 7 mmol/L (6-16); Aspartate Aminotrans (AST/SGOT 20 U/L (12-37); Bilirubin, Total 0.3 mg/dL (0.1-1.0); Blood Urea Nitrogen 9 mg/dL (8-24); Bun/Creatinine Ratio 21.4 (12.0-20.0); CO2, Blood 24 mmol/L (21-32); Chloride, Blood 110 mmol/L (98-108); Creatinine, Blood 0.42 mg/dL (0.40-1.00); Ethanol (Alcohol), Blood, Med <3 mg/dL; Globulin, Blood 3.8 g/dL (2.2-4.0); Glomerular Filtration Rate >60 (60-); Glucose, Blood 103 mg/dL (70-99); Potassium, Blood 4.1 mmol/L (3.5-5.5); Salicylate <1.7 mg/dL (2.8-20.0); Sodium, Blood 141 mmol/L (136-145); Total Protein, Blood 7.1 g/dL (6.4-8.2)
[2019-05-12 15:44] LABS: Acetaminophen, Random <2.0 ug/mL (10.0-30.0)
[2019-05-12] MEDS ORDERED: JUNEL FE 24 TA1 EACH (15:52)
[2019-05-12] MEDS ORDERED: JUNEL FE 24 TA1 EACH PO (15:53)
[2019-05-12] MEDS ORDERED: Paxil40 MG PO (17:30)
[2019-05-12] MEDS ORDERED: LORAZEPAM0.5 MG PO (17:34)
== END 2019-05-14 15:55 | disposition home or self-care (01) ==
LOC: ER 11:33 → EOR 11:34
PROVIDERS: Physician Assistant; ADMIT Emergency Medicine
DX: F33.9 Major depressive disorder, recurrent, unspecified (principal); E03.9 Hypothyroidism, unspecified; I10 Essential (primary) hypertension; J45.909 Unspecified asthma, uncomplicated; K58.9 Irritable bowel syndrome, unspecified; Z79.899 Other long term (current) drug therapy; Z87.891 Personal history of nicotine dependence
CPT/HCPCS: 36415; 80053; 81003; 81025; 85025; 99285; G0378; G0480

== ENCOUNTER 2019-05-18 18:28 | Emergency (ER) | payer OTHER ==
[~2019-05-18] VITALS: Ht 170.2 cm; Wt 90.7 kg
[~2019-05-18 18:28] MED LIST changes: +CLIMARA1 EACH TOP; +JUNEL FE 24 TA1 EACH; +LATUDA60 MG PO; +METO100ER PO; +Paxil40 MG PO; +Risperidone1 MG PO; +Vistaril50 MG PO
[2019-05-18 21:08] LABS: BASOPHILS ABSOLUTE AUTO 0.03 K/mm3 (0.00-0.23); BASOPHILS PERCENT AUTO 0 % (0-2); EOSINOPHILS ABSOLUTE AUTO 0.11 K/mm3 (0.00-0.68); EOSINOPHILS PERCENT AUTO 1 % (0-6); Hematocrit 40.1 % (33.0-51.0); Hemoglobin 13.6 g/dL (11.5-16.0); IMMATURE GRAN ABSOLUTE AUTO 0.01 K/mm3 (0.00-0.10); IMMATURE GRAN PERCENT AUTO 0 % (0-1); LYMPHOCYTES ABSOLUTE AUTO 1.95 K/mm3 (0.84-5.20); LYMPHOCYTES PERCENT AUTO 25 % (21-46); MONOCYTES ABSOLUTE AUTO 0.64 K/mm3 (0.16-1.47); MONOCYTES PERCENT AUTO 8 % (4-13); Mean Corpuscular HGB 31.9 pg (26.0-34.0); Mean Corpuscular HGB Conc 33.9 g/dL (31.5-36.5); Mean Corpuscular Volume 94 fL (80-100); Mean Platelet Volume 12.1 fL (9.1-12.4); NEUTROPHILS ABSOLUTE AUTO 4.95 K/mm3 (1.96-9.15); NEUTROPHILS PERCENT AUTO 64 % (41-73); Platelet Count 214 K/mm3 (150-400); RDW Coefficient Variation 10.8 % (11.7-14.2); RDW Standard Deviation 37.2 fL (35.1-46.3); Red Blood Cell Count 4.27 M/mm3 (3.80-5.20); White Blood Cell Count 7.69 K/mm3 (4.00-11.30)
[2019-05-18 21:09] LABS: Source, Urine Clean Catch
[2019-05-18 21:15] LABS: Bilirubin, Urine Neg (Neg); Blood, Urine Neg (Neg); Glucose Qualitative, Urine Neg (Neg); Ketones, Urine Neg (Neg); Leukocyte Esterase, Urine Neg (Neg); Nitrite, Urine Neg (Neg); Protein, Urine Neg (Neg); Urobilinogen, Urine NORM (Normal); pH, Urine 6.5 (5.0-8.0)
[2019-05-18 21:18] LABS: Appearance, Urine Clear (Clear); Color, Urine Yellow (P-Yellow)
[2019-05-18 21:27] LABS: U Amphetamine Screen Not Detected; U Barbituate Screen Not Detected; U Benzodiazapine Screen Not Detected; U Buprenorphine Screen Not Detected; U Cannabinoids Screen Not Detected; U Cocaine Screen Not Detected; U Methadone Screen Not Detected; U Methamphetamine Screen Not Detected; U Opiates Screen Not Detected; U Oxycodone Screen Not Detected; U Phencyclidine Screen Not Detected; U Propoxyphene Screen Not Detected
[2019-05-18 21:30] LABS: Alanine Aminotransfer (ALT/SGP 39 U/L (12-78); Albumin, Blood 3.2 g/dL (3.4-5.0); Albumin/Globulin Ratio 0.8 (0.8-1.8); Alk Phos 43 U/L (50-136); Anion Gap 6 mmol/L (6-16); Aspartate Aminotrans (AST/SGOT 20 U/L (12-37); Bilirubin, Total 0.2 mg/dL (0.1-1.0); Blood Urea Nitrogen 13 mg/dL (8-24); Bun/Creatinine Ratio 21.1 (12.0-20.0); CO2, Blood 24 mmol/L (21-32); Calcium, Blood 8.8 mg/dL (8.5-10.1); Chloride, Blood 109 mmol/L (98-108); Creatinine, Blood 0.62 mg/dL (0.40-1.00); Ethanol (Alcohol), Blood, Med <3 mg/dL; Free Thyroxine 2.27 ng/dL (0.70-1.60); Globulin, Blood 3.9 g/dL (2.2-4.0); Glomerular Filtration Rate >60 (60-); Glucose, Blood 98 mg/dL (70-99); Potassium, Blood 3.7 mmol/L (3.5-5.5); Salicylate <1.7 mg/dL (2.8-20.0); Sodium, Blood 139 mmol/L (136-145); Total Protein, Blood 7.1 g/dL (6.4-8.2)
[2019-05-18 21:32] LABS: Acetaminophen, Random <2.0 ug/mL (10.0-30.0)
== END 2019-05-18 22:20 | disposition home or self-care (01) ==
LOC: ER 18:28
PROVIDERS: Emergency Medicine
DX: F32.9 Major depressive disorder, single episode, unspecified (principal); E05.90 Thyrotoxicosis, unspecified without thyrotoxic crisis or storm; Z79.899 Other long term (current) drug therapy; F41.9 Anxiety disorder, unspecified; I10 Essential (primary) hypertension; Z87.891 Personal history of nicotine dependence
CPT/HCPCS: 80053; 81003; 81025; 84439; 84443; 84481; 85025; 99284; G0480; Q3014

== ENCOUNTER 2019-05-19 17:59 | Observation (INO) | payer OTHER ==
[~2019-05-19] VITALS: Ht 167.6 cm; Wt 51.3 kg
[2019-05-19 19:39] LABS: Source, Urine Clean Catch
[2019-05-19 19:45] LABS: Bilirubin, Urine Neg (Neg); Blood, Urine Neg (Neg); Glucose Qualitative, Urine Neg (Neg); Ketones, Urine Neg (Neg); Leukocyte Esterase, Urine 1+ (Neg); Nitrite, Urine Neg (Neg); Protein, Urine Neg (Neg); Specific Gravity, Urine 1.015 (1.003-1.022); Urobilinogen, Urine NORM (Normal)
[2019-05-19 19:55] LABS: Appearance, Urine Clear (Clear); Color, Urine Yellow (P-Yellow)
[2019-05-19 19:57] LABS: Bacteria Rare /hpf; Red Blood Cells, Urine 0-2 /hpf (0-2); Squamous Epithelial Cells Many /hpf (Few)
[2019-05-19 20:00] LABS: U Amphetamine Screen Not Detected; U Barbituate Screen Not Detected; U Benzodiazapine Screen Not Detected; U Buprenorphine Screen Not Detected; U Cannabinoids Screen Not Detected; U Cocaine Screen Not Detected; U Methadone Screen Not Detected; U Methamphetamine Screen Not Detected; U Opiates Screen Not Detected; U Oxycodone Screen Not Detected; U Phencyclidine Screen Not Detected; U Propoxyphene Screen Not Detected
== END 2019-05-20 12:40 | disposition home or self-care (01) ==
LOC: ER 17:59 → EOR 18:00
PROVIDERS: Physician Assistant; ADMIT Emergency Medicine
DX: F32.3 Major depressive disorder, single episode, severe with psychotic features (principal); I10 Essential (primary) hypertension; E05.90 Thyrotoxicosis, unspecified without thyrotoxic crisis or storm; Z87.891 Personal history of nicotine dependence; Z79.899 Other long term (current) drug therapy
CPT/HCPCS: 81001; 99283; 99285; G0378

== ENCOUNTER 2019-06-10 14:45 | Emergency (ER) | payer OTHER ==
[~2019-06-10] VITALS: Ht 167.6 cm; Wt 104.3 kg
[2019-06-10] MEDS ORDERED: Haloperidol1 MG PO (15:50)
== END 2019-06-10 16:11 | disposition home or self-care (01) ==
LOC: ER 14:45
DX: F32.9 Major depressive disorder, single episode, unspecified (principal); F41.9 Anxiety disorder, unspecified; I10 Essential (primary) hypertension; J45.909 Unspecified asthma, uncomplicated; Z79.899 Other long term (current) drug therapy; Z87.891 Personal history of nicotine dependence
CPT/HCPCS: 99283

== ENCOUNTER → 2019-08-20 | Outpatient (CLI) | payer OTHER ==
[~2019-08-20] MED LIST changes: +Haloperidol1 MG PO
[2019-08-20 12:44] LABS: Hematocrit 36.6 % (33.0-51.0); Hemoglobin 12.7 g/dL (11.5-16.0); Mean Corpuscular HGB 32.4 pg (26.0-34.0); Mean Corpuscular HGB Conc 34.7 g/dL (31.5-36.5); Mean Corpuscular Volume 93 fL (80-100); Mean Platelet Volume 10.2 fL (9.1-12.4); Platelet Count 225 K/mm3 (150-400); RDW Coefficient Variation 12.3 % (11.7-14.2); RDW Standard Deviation 41.6 fL (35.1-46.3); Red Blood Cell Count 3.92 M/mm3 (3.80-5.20); White Blood Cell Count 22.29 K/mm3 (4.00-11.30)
[2019-08-20 12:51] LABS: Anion Gap 12 mmol/L (6-16); Blood Urea Nitrogen 12 mg/dL (8-24); Bun/Creatinine Ratio 14.3 (12.0-20.0); CO2, Blood 23 mmol/L (21-32); Calcium, Blood 8.7 mg/dL (8.5-10.1); Chloride, Blood 101 mmol/L (98-108); Creatinine, Blood 0.84 mg/dL (0.40-1.00); Glomerular Filtration Rate >60 (60-); Glucose, Blood 145 mg/dL (70-99); Potassium, Blood 3.9 mmol/L (3.5-5.5); Sodium, Blood 136 mmol/L (136-145)
[2019-08-20 13:23] LABS: BAND PERCENT MAN 2 % (0-8); BASOPHILS PERCENT MAN 0 % (0-2); EOSINOPHILS PERCENT MAN 0 % (0-6); LYMPHOCYTES ABSOLUTE MAN 0.89 K/mm3 (0.84-5.20); LYMPHOCYTES PERCENT MAN 4 % (21-46); METAMYELOCYTE ABSOLUTE MAN 0.22 K/mm3 (0.00-0.00); METAMYELOCYTE PERCENT MAN 1 % (0-0); MONOCYTES ABSOLUTE MAN 0.44 K/mm3 (0.16-1.47); MONOCYTES PERCENT MAN 2 % (4-13); NEUTROPHILS ABSOLUTE MAN 20.72 K/mm3 (1.96-9.15); SEG NEUTROPHILS PERCENT MAN 91 % (41-73); TOTAL CELLS COUNTED 100
== END ==
LOC: LAB EV 12:40 → LAB SHORT 12:40
PROVIDERS: Family Medicine
DX: E86.0 Dehydration (principal)
CPT/HCPCS: 80048; 85025

== ENCOUNTER → 2019-08-21 | Outpatient (CLI) | payer OTHER ==
[2019-08-21 12:24] LABS: BASOPHILS ABSOLUTE AUTO 0.02 K/mm3 (0.00-0.23); BASOPHILS PERCENT AUTO 0 % (0-2); EOSINOPHILS ABSOLUTE AUTO 0.03 K/mm3 (0.00-0.68); EOSINOPHILS PERCENT AUTO 1 % (0-6); Hemoglobin 10.7 g/dL (11.5-16.0); IMMATURE GRAN ABSOLUTE AUTO 0.02 K/mm3 (0.00-0.10); IMMATURE GRAN PERCENT AUTO 0 % (0-1); LYMPHOCYTES ABSOLUTE AUTO 1.19 K/mm3 (0.84-5.20); LYMPHOCYTES PERCENT AUTO 19 % (21-46); MONOCYTES ABSOLUTE AUTO 0.55 K/mm3 (0.16-1.47); MONOCYTES PERCENT AUTO 9 % (4-13); Mean Corpuscular HGB 31.9 pg (26.0-34.0); Mean Corpuscular HGB Conc 33.4 g/dL (31.5-36.5); Mean Platelet Volume 10.4 fL (9.1-12.4); NEUTROPHILS ABSOLUTE AUTO 4.39 K/mm3 (1.96-9.15); NEUTROPHILS PERCENT AUTO 71 % (41-73); Platelet Count 192 K/mm3 (150-400); RDW Coefficient Variation 12.6 % (11.7-14.2); RDW Standard Deviation 43.7 fL (35.1-46.3); Red Blood Cell Count 3.35 M/mm3 (3.80-5.20)
[2019-08-21 13:14] LABS: Mean Corpuscular Volume 96 fL (80-100)
== END ==
LOC: LAB SHORT 12:20 → LAB EV 12:20
PROVIDERS: Family Medicine
DX: D72.829 Elevated white blood cell count, unspecified (principal)
CPT/HCPCS: 85025

== ENCOUNTER 2019-10-10 18:45 | Inpatient (IN) | payer OTHER ==
[~2019-10-10] VITALS: Ht 167.6 cm; Wt 104.7 kg
[~2019-10-10 18:45] MED LIST changes: -BUPR100ER PO; -ESTRADIOL1 M1 PO; -Metoprolol Tar100 MG PO; -PARO30 PO; -PROG100 PO
[2019-10-10] MEDS ORDERED: PARO30 PO (21:46)
[2019-10-10] MEDS ORDERED: Metoprolol Tar100 MG PO (21:47)
[2019-10-10] MEDS ORDERED: JUNEL FE 24 TA1 EACH PO (21:47)
[2019-10-10] MEDS ORDERED: BUPR100ER PO (21:47)
[2019-10-10] MEDS ORDERED: ESTRADIOL1 M1 PO (21:48)
[2019-10-10] MEDS ORDERED: PROG100 PO (21:48)
[2019-10-11 00:01] LABS: International Normalized Ratio 1.14; Prothrombin Time Results 12.1 Sec (9.7-11.5)
--- NOTE | 2019-10-11 00:28 | NUR ---
ADMIT ASSESSMENT PT ARRIVED FROM THE ER VIA GURNEY. SHE REQUESTED TO STAND AND TRANSFER TO BED HERSELF. SHE DID BECOME SOB WITH THIS TRANSFER, BUT RECOVERED IN BED QUICKLY. PT IS ON RA WITH SATS 97% AT REST. SHE DENIES ANY PAIN TO HER CHEST. STATES THERE IS SOME PAIN TO HER LEFT LEG. SHE RELATES THIS TO HER DVT. WILL CON'T TO MONITOR FOR CHANGES TO HER PAIN. VITALS ARE STABLE AT THIS TIME. WILL START THE HEPARIN GTT ORDERED WELL HER HEP BOLUS. DURING ADMIT PROCESS PT WAS UP TO BSC TWICE TO URINATE. URINE IS CLEAR YELLOW. PT RECIEVED LASIX IV IN ER. PT IS A FAIRLY GOOD HISTORIAN AND WAS ABLE TO GIVE A HEALTH HISTORY. SHE WAS NOT VERY SURE OF THE MEDICATIONS SHE TAKES OR THE AMOUNT. STATES SHE WOULD NEED THE BOTTLES TO SEE HOW SHE TAKES THEM. PT WAS ORIENTED TO CALL LIGHT SYSTEM. WILL CON'T TO MONITOR AND KEEP PT SAFE T/O SHIFT.
--- NOTE | 2019-10-11 05:55 | NUR ---
SHIFT SUMMARY PT OVERALL HAS HAD NO ACUTE CHANGES. HER VITALS CON'T TO BE STABLE. SHE WAS GIVEN MORNING MEDS THIS AM WITH NO ISSUES. SHE STATES SHE WAS FEELING WARM THIS AM AND HAD A SOME DISCOMFORT TO THE LEFT LEG. TYLENOL WAS GIVEN WITH GOOD RESULTS. PT HAS BEEN UP AND DOWN TO BSC SEVERAL TIMES T/O SHIFT. SHE DOES STILL GET SOB WITH ANY EXERTION, BUT SHE DOES RECOVER WELL WHEN BACK IN BED RESTING. PT CON'T TO HAVE HEP RUNNING ORDERED IN RIGHT AC IV. WILL CON'T TO MONITOR AND KEEP PT SAFE TILL REPORT TO ONCOMING RN.
[2019-10-11 06:08] LABS: BASOPHILS ABSOLUTE AUTO 0.01 K/mm3 (0.00-0.23); BASOPHILS PERCENT AUTO 0 % (0-2); EOSINOPHILS ABSOLUTE AUTO 0.01 K/mm3 (0.00-0.68); EOSINOPHILS PERCENT AUTO 0 % (0-6); Hematocrit 27.3 % (33.0-51.0); Hemoglobin 8.8 g/dL (11.5-16.0); IMMATURE GRAN ABSOLUTE AUTO 0.02 K/mm3 (0.00-0.10); IMMATURE GRAN PERCENT AUTO 0 % (0-1); LYMPHOCYTES ABSOLUTE AUTO 1.41 K/mm3 (0.84-5.20); LYMPHOCYTES PERCENT AUTO 20 % (21-46); MONOCYTES ABSOLUTE AUTO 0.43 K/mm3 (0.16-1.47); MONOCYTES PERCENT AUTO 6 % (4-13); Mean Corpuscular HGB 30.3 pg (26.0-34.0); Mean Corpuscular HGB Conc 32.2 g/dL (31.5-36.5); Mean Corpuscular Volume 94 fL (80-100); Mean Platelet Volume 10.3 fL (9.1-12.4); NEUTROPHILS ABSOLUTE AUTO 5.24 K/mm3 (1.96-9.15); NEUTROPHILS PERCENT AUTO 74 % (41-73); Platelet Count 257 K/mm3 (150-400); RDW Coefficient Variation 11.9 % (11.7-14.2); RDW Standard Deviation 40.7 fL (35.1-46.3); White Blood Cell Count 7.12 K/mm3 (4.00-11.30)
[2019-10-11 06:28] LABS: Anion Gap 10 mmol/L (6-16); Blood Urea Nitrogen 9 mg/dL (8-24); Bun/Creatinine Ratio 15.4 (12.0-20.0); CO2, Blood 23 mmol/L (21-32); Calcium, Blood 7.9 mg/dL (8.5-10.1); Chloride, Blood 105 mmol/L (98-108); Creatinine, Blood 0.58 mg/dL (0.40-1.00); Glomerular Filtration Rate >60 (60-); Glucose, Blood 131 mg/dL (70-99); Potassium, Blood 3.1 mmol/L (3.5-5.5); Sodium, Blood 138 mmol/L (136-145)
[2019-10-11 06:54] LABS: Troponin I 0.507 ng/mL (0.000-0.040)
--- NOTE | 2019-10-11 07:15 | NUR ---
BEGINNING OF SHIFT Assumed care of pt at 0700. Bedside report received from Holli DIAZ. Pt A&O x 4. Answers questions appropriately. Follows commands. Verbalizes needs. Pt on room air. SpO2 90% or greater. Lungs dim t/o. SR per monitor. Rate 92. Trace edema RLE. 1+ edema LLE. BP stable. Bed in lowest position. Call light in reach. Pt denies need at this time.
--- NOTE | 2019-10-11 08:00 | NUR ---
CALL PLACED TO DR FERNANDES Notified provider of elevated troponin. Provider states he has already reviewed this and will be entering orders.
--- NOTE | 2019-10-11 09:00 | NUR ---
DR FERNANDES IN TO SEE PT Discussed suspicion for PE. Provider states this is highly unlikely. Orders for echocardiogram to be changed to stat. Provider would like notification when this has been completed. Nursing suction dredge dumping supervisor, Ace DIAZ, notified of stat exam.
--- NOTE | 2019-10-11 10:25 | NUR ---
Urgent echo performed with stat over read requested of Dr. Renee.
--- NOTE | 2019-10-11 10:55 | NUR ---
PROVIDER CONTACT Dr Benavides called unit to discuss echocardiogram reading with this RN. States vegetation and regurgitation of aortic valve. This RN notified provider that pt also has elevated troponin. Provider recommends blood cultures and transfering patient to facility with valve replacement capabilities. He states cardiology consultation is not necessary at this time. This RN placed call to Dr Chavez to discuss recommendations from Dr Renee. Provider states blood cultures to be drawn now. States he will call Dr Renee and enter orders afterwards.
[2019-10-11 13:28] LABS: Hematocrit 25.8 % (33.0-51.0); Hemoglobin 8.3 g/dL (11.5-16.0); Mean Corpuscular HGB 30.4 pg (26.0-34.0); Mean Corpuscular HGB Conc 32.2 g/dL (31.5-36.5); Mean Corpuscular Volume 95 fL (80-100); Mean Platelet Volume 10.5 fL (9.1-12.4); Platelet Count 233 K/mm3 (150-400); RDW Standard Deviation 41.1 fL (35.1-46.3); Red Blood Cell Count 2.73 M/mm3 (3.80-5.20); White Blood Cell Count 6.96 K/mm3 (4.00-11.30)
--- NOTE | 2019-10-11 15:20 | NUR ---
DR FERNANDES IN UNIT Clarified that provider would like IV lasix now. Clarified potassium replacement since more lasix will be given. Provider states to give 40 MEQ IV now, OK if pt receives potassium on transfer to [facility].
--- NOTE | 2019-10-11 18:08 | NUR ---
DISCHARGE SUMMARY Pt discharged from ICU 1750 accompanied by [facility] ambulance for [facility]. Pt departed via gurney, wearing room air. Pt departed with 1st bag of IV potassium infusing along with TKO for dilution as pt was not able to tolerate potassium on its own. Second bag of potassium sent with transport staff who stated they were able to start it when it is due. Pt mobilized self from bed to gurney. This RN placed call to pt's mom per pt's request to update on room assignment and provide unit phone number.
== END 2019-10-11 17:54 | disposition home or self-care (01) | DRG 288 ==
LOC: ER 18:45 → ICUE 22:49 → ICUW 22:49 → ICUE 23:07
PROVIDERS: Hospitalist; Nurse Practitioner Acute Care; ADMIT Internal Medicine
DX: I33.0 Acute and subacute infective endocarditis (principal); I50.31 Acute diastolic (congestive) heart failure; I82.4Z2 Acute embolism and thrombosis of unspecified deep veins of left distal lower extremity; I11.0 Hypertensive heart disease with heart failure; F32.9 Major depressive disorder, single episode, unspecified; E05.90 Thyrotoxicosis, unspecified without thyrotoxic crisis or storm; F41.8 Other specified anxiety disorders; K58.9 Irritable bowel syndrome, unspecified; Z87.891 Personal history of nicotine dependence
CPT/HCPCS: 36415; 71260; 80048; 83880; 84484; 85025; 85027; 85610; 85730; 87040; 87077; 87184; 93005; 93010; 93306; 93971; 96374-59; 99285-25; A9270; A9270-GY; J1644; J1650; J1940; J3370; J3480; J7050; Q9967

== ENCOUNTER → 2019-10-10 | Outpatient (CLI) | payer OTHER ==
[~2019-10-10] MED LIST changes: +BUPR100ER PO; +ESTRADIOL1 M1 PO; +Metoprolol Tar100 MG PO; +PARO30 PO; +PROG100 PO
[2019-10-10 17:55] LABS: BASOPHILS ABSOLUTE AUTO 0.02 K/mm3 (0.00-0.23); BASOPHILS PERCENT AUTO 0 % (0-2); EOSINOPHILS ABSOLUTE AUTO 0.02 K/mm3 (0.00-0.68); EOSINOPHILS PERCENT AUTO 0 % (0-6); Hematocrit 28.1 % (33.0-51.0); Hemoglobin 9.2 g/dL (11.5-16.0); IMMATURE GRAN ABSOLUTE AUTO 0.03 K/mm3 (0.00-0.10); IMMATURE GRAN PERCENT AUTO 0 % (0-1); LYMPHOCYTES ABSOLUTE AUTO 0.89 K/mm3 (0.84-5.20); LYMPHOCYTES PERCENT AUTO 12 % (21-46); MONOCYTES ABSOLUTE AUTO 0.24 K/mm3 (0.16-1.47); MONOCYTES PERCENT AUTO 3 % (4-13); Mean Corpuscular HGB 30.7 pg (26.0-34.0); Mean Corpuscular HGB Conc 32.7 g/dL (31.5-36.5); Mean Corpuscular Volume 94 fL (80-100); Mean Platelet Volume 10.7 fL (9.1-12.4); NEUTROPHILS ABSOLUTE AUTO 5.98 K/mm3 (1.96-9.15); NEUTROPHILS PERCENT AUTO 83 % (41-73); Platelet Count 245 K/mm3 (150-400); RDW Coefficient Variation 12.1 % (11.7-14.2); White Blood Cell Count 7.18 K/mm3 (4.00-11.30)
[2019-10-10 18:14] LABS: Alanine Aminotransfer (ALT/SGP 28 U/L (12-78); Albumin, Blood 2.2 g/dL (3.4-5.0); Albumin/Globulin Ratio 0.5 (0.8-1.8); Alk Phos 37 U/L (40-126); Anion Gap 9 mmol/L (6-16); Aspartate Aminotrans (AST/SGOT 24 U/L (12-37); Bilirubin, Total 0.5 mg/dL (0.1-1.0); Blood Urea Nitrogen 7 mg/dL (8-24); Bun/Creatinine Ratio 10.6 (12.0-20.0); CO2, Blood 23 mmol/L (21-32); Calcium, Blood 8.3 mg/dL (8.5-10.1); Chloride, Blood 103 mmol/L (98-108); Creatinine, Blood 0.66 mg/dL (0.40-1.00); Free Thyroxine 3.51 ng/dL (0.70-1.60); Globulin, Blood 4.6 g/dL (2.2-4.0); Glomerular Filtration Rate >60 (60-); Glucose, Blood 102 mg/dL (70-99); Potassium, Blood 4.3 mmol/L (3.5-5.5); Sodium, Blood 135 mmol/L (136-145); Total Protein, Blood 6.8 g/dL (6.4-8.2)
[2019-10-10 18:21] LABS: Troponin I 0.562 ng/mL (0.000-0.040)
== END | disposition home or self-care (01) ==
PROVIDERS: Physician Assistant Surgical
DX: R06.00 Dyspnea, unspecified (principal)

== ENCOUNTER 2019-10-25 18:52 | Emergency (ER) | payer OTHER ==
[~2019-10-25] VITALS: Ht 167.6 cm; Wt 104.3 kg
[~2019-10-25 18:52] MED LIST changes: +BUPR100ER PO; +ESTRADIOL1 M1 PO; +Metoprolol Tar100 MG PO; +PARO30 PO; +PROG100 PO
== END 2019-10-25 20:30 | disposition home or self-care (01) ==
LOC: ER 18:52
DX: T82.858A Stenosis of other vascular prosthetic devices, implants and grafts, initial encounter (principal); F32.9 Major depressive disorder, single episode, unspecified; F41.9 Anxiety disorder, unspecified; I10 Essential (primary) hypertension; J45.909 Unspecified asthma, uncomplicated; Z87.891 Personal history of nicotine dependence; Z79.899 Other long term (current) drug therapy
CPT/HCPCS: 96523; 99282-25; J2997

== ENCOUNTER 2019-10-29 00:16 | Day surgery (SDC) | payer OTHER | END 2019-10-29 09:30 | disposition home or self-care (01) | LOC: ATC 00:16 | DX: I33.9 Acute and subacute endocarditis, unspecified (principal); I10 Essential (primary) hypertension; F31.9 Bipolar disorder, unspecified; Z88.8 Allergy status to other drugs, medicaments and biological substances; Z88.1 Allergy status to other antibiotic agents | CPT/HCPCS: 99211 ==

== ENCOUNTER 2020-10-16 22:27 | Observation (INO) | payer OTHER ==
[~2020-10-16] VITALS: Ht 167.6 cm; Wt 122.5 kg
[2020-10-16] MEDS ORDERED: DILTIAZEM 24HR240 M5 PO (23:00)
[2020-10-16] MEDS ORDERED: ESTRADIOL TD (23:00)
[2020-10-16 23:23] LABS: BASOPHILS ABSOLUTE AUTO 0.03 K/mm3 (0.00-0.23); BASOPHILS PERCENT AUTO 0 % (0-2); EOSINOPHILS PERCENT AUTO 0 % (0-6); Hematocrit 39.1 % (33.0-51.0); Hemoglobin 13.6 g/dL (11.5-16.0); IMMATURE GRAN ABSOLUTE AUTO 0.05 K/mm3 (0.00-0.10); IMMATURE GRAN PERCENT AUTO 0 % (0-1); LYMPHOCYTES ABSOLUTE AUTO 0.97 K/mm3 (0.84-5.20); LYMPHOCYTES PERCENT AUTO 7 % (21-46); MONOCYTES PERCENT AUTO 2 % (4-13); Mean Corpuscular HGB 32.5 pg (26.0-34.0); Mean Corpuscular HGB Conc 34.8 g/dL (31.5-36.5); Mean Corpuscular Volume 93 fL (80-100); Mean Platelet Volume 11.5 fL (9.1-12.4); NEUTROPHILS ABSOLUTE AUTO 11.75 K/mm3 (1.96-9.15); NEUTROPHILS PERCENT AUTO 90 % (41-73); Platelet Count 200 K/mm3 (150-400); RDW Coefficient Variation 11.5 % (11.7-14.2); RDW Standard Deviation 39.3 fL (35.1-46.3); Red Blood Cell Count 4.19 M/mm3 (3.80-5.20)
[2020-10-16 23:49] LABS: Acetaminophen, Random <2.0 ug/mL (10.0-30.0); Alanine Aminotransfer (ALT/SGP 57 U/L (12-78); Albumin, Blood 3.4 g/dL (3.4-5.0); Albumin/Globulin Ratio 0.8 (0.8-1.8); Alk Phos 57 U/L (50-136); Anion Gap 9 mmol/L (6-16); Aspartate Aminotrans (AST/SGOT 22 U/L (12-37); Bilirubin, Total 0.2 mg/dL (0.1-1.0); Blood Urea Nitrogen 10 mg/dL (8-24); Bun/Creatinine Ratio 13.8 (12.0-20.0); CO2, Blood 20 mmol/L (21-32); Calcium, Blood 8.8 mg/dL (8.5-10.1); Chloride, Blood 107 mmol/L (98-108); Creatinine, Blood 0.72 mg/dL (0.40-1.00); Ethanol (Alcohol), Blood, Med <3 mg/dL; Glomerular Filtration Rate >60 (60-); Glucose, Blood 168 mg/dL (70-99); Potassium, Blood 3.9 mmol/L (3.5-5.5); Salicylate <1.7 mg/dL (2.8-20.0); Sodium, Blood 136 mmol/L (136-145); Thyroid Stimulating Hormone <0.005 uIU/mL (0.360-4.800); Thyroxine (T4) 11.2 ug/dL (4.8-13.9); Total Protein, Blood 7.4 g/dL (6.4-8.2)
[2020-10-16 23:55] LABS: Source, Urine Clean Catch
[2020-10-16 23:58] LABS: Bilirubin, Urine Neg (Neg); Blood, Urine 1+ (Neg); Glucose Qualitative, Urine Neg (Neg); Ketones, Urine 1+ (Neg); Leukocyte Esterase, Urine Neg (Neg); Nitrite, Urine Neg (Neg); Protein, Urine 1+ (Neg); Urobilinogen, Urine NORM (Normal)
[2020-10-17 00:17] LABS: U Amphetamine Screen Not Detected; U Barbituate Screen Not Detected; U Benzodiazapine Screen Not Detected; U Buprenorphine Screen Not Detected; U Cannabinoids Screen Not Detected; U Cocaine Screen Not Detected; U Methadone Screen Not Detected; U Methamphetamine Screen Not Detected; U Opiates Screen Not Detected; U Oxycodone Screen Not Detected; U Phencyclidine Screen Not Detected; U Propoxyphene Screen Not Detected
[2020-10-17 00:18] LABS: Amorphous Light (0-Heavy); Appearance, Urine Hazy (Clear); Bacteria Many /hpf; Color, Urine Yellow (P-Yellow); Mucus Light (0-Heavy); Red Blood Cells, Urine 0-2 /hpf (0-2); Squamous Epithelial Cells Many /hpf (Few)
[2020-10-17 01:10] LABS: Base Excess Venous -5.5 mmol/L; Bicarbonate Venous 20.2 mmol/L (24.0-30.0); PO2 Venous 82.4 mmHg (38-42)
[2020-10-17 01:11] LABS: PCO2 Venous 40.3 mmHg (38-42); pH Blood Venous 7.32 (7.34-7.37)
[2020-10-17 12:50] LABS: SARS-Cov-2 (COVID-19) PCR, MMC NEGATIVE (NEGATIVE)
[2020-10-18] MEDS ORDERED: Ativan1 MG PO (11:26)
== END 2020-10-18 11:33 | disposition home or self-care (01) ==
LOC: ER 22:27 → EOR 22:28
PROVIDERS: Emergency Medicine; ADMIT Emergency Medicine
DX: F33.9 Major depressive disorder, recurrent, unspecified (principal); F41.9 Anxiety disorder, unspecified; I10 Essential (primary) hypertension; J45.909 Unspecified asthma, uncomplicated; Z20.822 Contact with and (suspected) exposure to COVID-19; Z87.891 Personal history of nicotine dependence; Z86.59 Personal history of other mental and behavioral disorders
CPT/HCPCS: 36415; 80053; 81001; 81025; 82803; 84436; 84443; 85025; 87086; 93005; 93010; 99285-25; A9270; G0378; G0480; J7030; Q3014; U0004

== ENCOUNTER 2020-10-30 21:58 | Observation (INO) | payer OTHER ==
[~2020-10-30] VITALS: Ht 167.6 cm; Wt 122.5 kg
[~2020-10-30 21:58] MED LIST changes: +Ativan1 MG PO; +DILTIAZEM 24HR240 M5 PO; +ESTRADIOL TD
[2020-10-30 23:13] LABS: Source, Urine Clean Catch
[2020-10-30 23:22] LABS: BASOPHILS ABSOLUTE AUTO 0.05 K/mm3 (0.00-0.23); BASOPHILS PERCENT AUTO 1 % (0-2); EOSINOPHILS ABSOLUTE AUTO 0.11 K/mm3 (0.00-0.68); EOSINOPHILS PERCENT AUTO 1 % (0-6); Hematocrit 40.4 % (33.0-51.0); Hemoglobin 13.9 g/dL (11.5-16.0); IMMATURE GRAN ABSOLUTE AUTO 0.01 K/mm3 (0.00-0.10); IMMATURE GRAN PERCENT AUTO 0 % (0-1); LYMPHOCYTES ABSOLUTE AUTO 2.76 K/mm3 (0.84-5.20); LYMPHOCYTES PERCENT AUTO 33 % (21-46); MONOCYTES ABSOLUTE AUTO 0.74 K/mm3 (0.16-1.47); MONOCYTES PERCENT AUTO 9 % (4-13); Mean Corpuscular HGB 32.4 pg (26.0-34.0); Mean Corpuscular HGB Conc 34.4 g/dL (31.5-36.5); Mean Corpuscular Volume 94 fL (80-100); Mean Platelet Volume 11.3 fL (9.1-12.4); NEUTROPHILS ABSOLUTE AUTO 4.79 K/mm3 (1.96-9.15); NEUTROPHILS PERCENT AUTO 57 % (41-73); Platelet Count 237 K/mm3 (150-400); RDW Coefficient Variation 11.6 % (11.7-14.2); RDW Standard Deviation 39.7 fL (35.1-46.3); Red Blood Cell Count 4.29 M/mm3 (3.80-5.20); White Blood Cell Count 8.46 K/mm3 (4.00-11.30)
[2020-10-30 23:49] LABS: Bilirubin, Urine Neg (Neg); Blood, Urine 5+ (Neg); Glucose Qualitative, Urine Neg (Neg); Ketones, Urine Neg (Neg); Leukocyte Esterase, Urine 1+ (Neg); Nitrite, Urine Neg (Neg); Protein, Urine 1+ (Neg); Urobilinogen, Urine NORM (Normal)
[2020-10-30 23:52] LABS: Alanine Aminotransfer (ALT/SGP 47 U/L (12-78); Albumin, Blood 3.5 g/dL (3.4-5.0); Albumin/Globulin Ratio 0.8 (0.8-1.8); Alk Phos 55 U/L (50-136); Anion Gap 6 mmol/L (6-16); Aspartate Aminotrans (AST/SGOT 17 U/L (12-37); Bilirubin, Total 0.2 mg/dL (0.1-1.0); Blood Urea Nitrogen 17 mg/dL (8-24); Bun/Creatinine Ratio 19.5 (12.0-20.0); CO2, Blood 25 mmol/L (21-32); Calcium, Blood 9.9 mg/dL (8.5-10.1); Chloride, Blood 107 mmol/L (98-108); Creatinine, Blood 0.87 mg/dL (0.40-1.00); Ethanol (Alcohol), Blood, Med <3 mg/dL; Globulin, Blood 4.2 g/dL (2.2-4.0); Glomerular Filtration Rate >60 (60-); Glucose, Blood 96 mg/dL (70-99); Potassium, Blood 4.2 mmol/L (3.5-5.5); Sodium, Blood 138 mmol/L (136-145); Total Protein, Blood 7.7 g/dL (6.4-8.2)
[2020-10-30 23:53] LABS: Acetaminophen, Random <2.0 ug/mL (10.0-30.0)
[2020-10-30 23:57] LABS: Appearance, Urine Clear (Clear); Color, Urine Yellow (P-Yellow)
[2020-10-30 23:59] LABS: Bacteria Mod /hpf; Squamous Epithelial Cells Mod /hpf (Few)
[2020-10-31] LABS: U Amphetamine Screen Not Detected; U Barbituate Screen Not Detected; U Benzodiazapine Screen Not Detected; U Buprenorphine Screen Not Detected; U Cannabinoids Screen Not Detected; U Cocaine Screen Not Detected; U Methadone Screen Not Detected; U Methamphetamine Screen Not Detected; U Opiates Screen Not Detected; U Oxycodone Screen Not Detected; U Phencyclidine Screen Not Detected; U Propoxyphene Screen Not Detected
[2020-10-31 00:43] LABS: SARS-Cov-2 (COVID-19) PCR, MMC NEGATIVE (NEGATIVE)
== END 2020-10-31 21:25 | disposition home or self-care (01) ==
LOC: ER 21:58 → EOR 21:59
PROVIDERS: ADMIT Emergency Medicine
DX: F29 Unspecified psychosis not due to a substance or known physiological condition (principal); I10 Essential (primary) hypertension; E21.3 Hyperparathyroidism, unspecified; J45.909 Unspecified asthma, uncomplicated; Z87.891 Personal history of nicotine dependence; Z79.899 Other long term (current) drug therapy; Z20.822 Contact with and (suspected) exposure to COVID-19
CPT/HCPCS: 80053; 81001; 85025; 87086; 99285; A9270; G0378; G0480; Q3014; U0004

== ENCOUNTER 2021-03-01 11:46 | Emergency (ER) | payer OTHER ==
[~2021-03-01] VITALS: Ht 165.1 cm; Wt 114.0 kg
[2021-03-01 13:17] LABS: Source, Urine Clean Catch
[2021-03-01 13:25] LABS: BASOPHILS ABSOLUTE AUTO 0.03 K/mm3 (0.00-0.23); BASOPHILS PERCENT AUTO 0 % (0-2); EOSINOPHILS ABSOLUTE AUTO 0.02 K/mm3 (0.00-0.68); EOSINOPHILS PERCENT AUTO 0 % (0-6); Hematocrit 38.6 % (33.0-51.0); Hemoglobin 13.3 g/dL (11.5-16.0); IMMATURE GRAN ABSOLUTE AUTO 0.02 K/mm3 (0.00-0.10); IMMATURE GRAN PERCENT AUTO 0 % (0-1); LYMPHOCYTES ABSOLUTE AUTO 0.89 K/mm3 (0.84-5.20); LYMPHOCYTES PERCENT AUTO 12 % (21-46); MONOCYTES ABSOLUTE AUTO 0.57 K/mm3 (0.16-1.47); MONOCYTES PERCENT AUTO 7 % (4-13); Mean Corpuscular HGB 30.9 pg (26.0-34.0); Mean Corpuscular HGB Conc 34.5 g/dL (31.5-36.5); Mean Corpuscular Volume 90 fL (80-100); Mean Platelet Volume 12.4 fL (9.1-12.4); NEUTROPHILS ABSOLUTE AUTO 6.15 K/mm3 (1.96-9.15); NEUTROPHILS PERCENT AUTO 80 % (41-73); Platelet Count 192 K/mm3 (150-400); RDW Coefficient Variation 11.2 % (11.7-14.2); RDW Standard Deviation 36.4 fL (35.1-46.3); White Blood Cell Count 7.68 K/mm3 (4.00-11.30)
[2021-03-01 13:42] LABS: Alanine Aminotransfer (ALT/SGP 49 U/L (12-78); Albumin, Blood 3.3 g/dL (3.4-5.0); Albumin/Globulin Ratio 0.8 (0.8-1.8); Alk Phos 38 U/L (50-136); Anion Gap 12 mmol/L (6-16); Aspartate Aminotrans (AST/SGOT 27 U/L (12-37); Bilirubin, Total 0.2 mg/dL (0.1-1.0); Blood Urea Nitrogen 19 mg/dL (8-24); CO2, Blood 15 mmol/L (21-32); Calcium, Blood 9.1 mg/dL (8.5-10.1); Chloride, Blood 110 mmol/L (98-108); Ethanol (Alcohol), Blood, Med <3 mg/dL; Globulin, Blood 4.4 g/dL (2.2-4.0); Glomerular Filtration Rate >60 (60-); Glucose, Blood 110 mg/dL (70-99); Potassium, Blood 3.5 mmol/L (3.5-5.5); Salicylate <1.7 mg/dL (2.8-20.0); Sodium, Blood 137 mmol/L (136-145); Total Protein, Blood 7.7 g/dL (6.4-8.2)
[2021-03-01 13:49] LABS: Acetaminophen, Random <2.0 ug/mL (10.0-30.0)
[2021-03-01 13:57] LABS: Bilirubin, Urine Neg (Neg); Blood, Urine Neg (Neg); Glucose Qualitative, Urine 4+ (Neg); Ketones, Urine Neg (Neg); Leukocyte Esterase, Urine Neg (Neg); Nitrite, Urine Neg (Neg); Protein, Urine 1+ (Neg); Specific Gravity, Urine 1.015 (1.003-1.022); Urobilinogen, Urine NORM (Normal); pH, Urine 6.5 (5.0-8.0)
[2021-03-01 14:00] LABS: Appearance, Urine Hazy (Clear); Color, Urine Yellow (P-Yellow)
[2021-03-01 14:01] LABS: WBC Cast 0-2 /lpf (0)
[2021-03-01 14:02] LABS: Bacteria Few /hpf; Red Blood Cells, Urine 0-2 /hpf (0-2); Squamous Epithelial Cells Few /hpf (Few); Transitional Epithelial Cells Few /hpf (0-Rare)
[2021-03-01 14:09] LABS: U Amphetamine Screen Not Detected; U Barbituate Screen Not Detected; U Benzodiazapine Screen Not Detected; U Buprenorphine Screen Not Detected; U Cannabinoids Screen Not Detected; U Cocaine Screen Not Detected; U Methadone Screen Not Detected; U Methamphetamine Screen Not Detected; U Opiates Screen Not Detected; U Oxycodone Screen Not Detected; U Phencyclidine Screen Not Detected; U Propoxyphene Screen Not Detected
[2021-03-01 15:13] LABS: SARS-Cov-2 (COVID-19) PCR, MMC NEGATIVE (NEGATIVE)
== END 2021-03-01 15:22 | disposition home or self-care (01) ==
LOC: ER 11:46
PROVIDERS: Physician Assistant
DX: F41.0 Panic disorder [episodic paroxysmal anxiety] (principal); I10 Essential (primary) hypertension; J45.909 Unspecified asthma, uncomplicated; Z79.899 Other long term (current) drug therapy; Z87.891 Personal history of nicotine dependence; Z20.822 Contact with and (suspected) exposure to COVID-19
CPT/HCPCS: 36415; 80053; 81001; 81025; 85025; 87077; 87086; 87186; 99284; A9270; G0480; Q3014; U0004

== ENCOUNTER 2021-04-03 17:14 | Emergency (ER) | payer OTHER ==
[~2021-04-03] VITALS: Ht 167.6 cm; Wt 104.3 kg
[2021-04-03 17:44] LABS: BASOPHILS ABSOLUTE AUTO 0.04 K/mm3 (0.00-0.23); BASOPHILS PERCENT AUTO 0 % (0-2); EOSINOPHILS ABSOLUTE AUTO 0.01 K/mm3 (0.00-0.68); EOSINOPHILS PERCENT AUTO 0 % (0-6); Hematocrit 40.2 % (33.0-51.0); Hemoglobin 13.8 g/dL (11.5-16.0); IMMATURE GRAN ABSOLUTE AUTO 0.02 K/mm3 (0.00-0.10); IMMATURE GRAN PERCENT AUTO 0 % (0-1); LYMPHOCYTES ABSOLUTE AUTO 1.65 K/mm3 (0.84-5.20); LYMPHOCYTES PERCENT AUTO 18 % (21-46); MONOCYTES ABSOLUTE AUTO 0.72 K/mm3 (0.16-1.47); MONOCYTES PERCENT AUTO 8 % (4-13); Mean Corpuscular HGB 31.2 pg (26.0-34.0); Mean Corpuscular HGB Conc 34.3 g/dL (31.5-36.5); Mean Corpuscular Volume 91 fL (80-100); Mean Platelet Volume 12.4 fL (9.1-12.4); NEUTROPHILS ABSOLUTE AUTO 6.93 K/mm3 (1.96-9.15); NEUTROPHILS PERCENT AUTO 74 % (41-73); Platelet Count 233 K/mm3 (150-400); RDW Standard Deviation 39.8 fL (35.1-46.3); Red Blood Cell Count 4.43 M/mm3 (3.80-5.20); White Blood Cell Count 9.37 K/mm3 (4.00-11.30)
[2021-04-03 18:02] LABS: Alanine Aminotransfer (ALT/SGP 80 U/L (12-78); Albumin, Blood 3.3 g/dL (3.4-5.0); Albumin/Globulin Ratio 0.8 (0.8-1.8); Alk Phos 42 U/L (50-136); Anion Gap 10 mmol/L (6-16); Aspartate Aminotrans (AST/SGOT 36 U/L (12-37); Bilirubin, Total 0.4 mg/dL (0.1-1.0); Blood Urea Nitrogen 10 mg/dL (8-24); Bun/Creatinine Ratio 14.6 (12.0-20.0); CO2, Blood 22 mmol/L (21-32); Chloride, Blood 108 mmol/L (98-108); Creatinine, Blood 0.68 mg/dL (0.40-1.00); Ethanol (Alcohol), Blood, Med <3 mg/dL; Globulin, Blood 4.2 g/dL (2.2-4.0); Glomerular Filtration Rate >60 (60-); Glucose, Blood 116 mg/dL (70-99); Potassium, Blood 3.5 mmol/L (3.5-5.5); Salicylate <1.7 mg/dL (2.8-20.0); Sodium, Blood 140 mmol/L (136-145); Total Protein, Blood 7.5 g/dL (6.4-8.2)
[2021-04-03 18:03] LABS: Acetaminophen, Random <2.0 ug/mL (10.0-30.0)
[2021-04-03 20:47] LABS: Source, Urine Clean Catch
[2021-04-03 20:57] LABS: Bilirubin, Urine Neg (Neg); Blood, Urine Neg (Neg); Glucose Qualitative, Urine Neg (Neg); Ketones, Urine Neg (Neg); Leukocyte Esterase, Urine Neg (Neg); Nitrite, Urine Neg (Neg); Protein, Urine Neg (Neg); Urobilinogen, Urine NORM (Normal); pH, Urine 6.5 (5.0-8.0)
[2021-04-03 21:03] LABS: Appearance, Urine Clear (Clear); Color, Urine Yellow (P-Yellow)
[2021-04-03 21:09] LABS: U Amphetamine Screen Not Detected; U Barbituate Screen Not Detected; U Benzodiazapine Screen Not Detected; U Buprenorphine Screen Not Detected; U Cannabinoids Screen Not Detected; U Cocaine Screen Not Detected; U Methadone Screen Not Detected; U Methamphetamine Screen Not Detected; U Opiates Screen Not Detected; U Oxycodone Screen Not Detected; U Phencyclidine Screen Not Detected; U Propoxyphene Screen Not Detected
== END 2021-04-03 22:48 | disposition home or self-care (01) ==
LOC: ER 17:14
PROVIDERS: Physician Assistant
DX: F32.9 Major depressive disorder, single episode, unspecified (principal); F41.9 Anxiety disorder, unspecified; I10 Essential (primary) hypertension; E03.9 Hypothyroidism, unspecified; J45.909 Unspecified asthma, uncomplicated; Z79.899 Other long term (current) drug therapy
CPT/HCPCS: 36415; 80053; 81003; 81025; 84439; 84443; 85025; 93005; 93010; 99285-25; A9270; G0480

== ENCOUNTER 2021-04-21 11:29 | Inpatient (IN) | payer OTHER ==
[~2021-04-21] VITALS: Ht 167.6 cm; Wt 114.0 kg
[2021-04-21 12:00] LABS: Source, Urine Clean Catch
[2021-04-21 12:03] LABS: Appearance, Urine Clear (Clear); BASOPHILS ABSOLUTE AUTO 0.03 K/mm3 (0.00-0.23); BASOPHILS PERCENT AUTO 1 % (0-2); Bilirubin, Urine Neg (Neg); Blood, Urine 3+ (Neg); Color, Urine Yellow (P-Yellow); EOSINOPHILS ABSOLUTE AUTO 0.06 K/mm3 (0.00-0.68); EOSINOPHILS PERCENT AUTO 1 % (0-6); Glucose Qualitative, Urine Neg (Neg); Hematocrit 39.5 % (33.0-51.0); Hemoglobin 13.4 g/dL (11.5-16.0); IMMATURE GRAN ABSOLUTE AUTO 0.02 K/mm3 (0.00-0.10); IMMATURE GRAN PERCENT AUTO 0 % (0-1); Ketones, Urine Neg (Neg); LYMPHOCYTES ABSOLUTE AUTO 1.21 K/mm3 (0.84-5.20); LYMPHOCYTES PERCENT AUTO 19 % (21-46); Leukocyte Esterase, Urine 2+ (Neg); MONOCYTES ABSOLUTE AUTO 0.48 K/mm3 (0.16-1.47); MONOCYTES PERCENT AUTO 8 % (4-13); Mean Corpuscular HGB 31.5 pg (26.0-34.0); Mean Corpuscular HGB Conc 33.9 g/dL (31.5-36.5); Mean Corpuscular Volume 93 fL (80-100); Mean Platelet Volume 11.2 fL (9.1-12.4); NEUTROPHILS ABSOLUTE AUTO 4.54 K/mm3 (1.96-9.15); NEUTROPHILS PERCENT AUTO 72 % (41-73); Nitrite, Urine Neg (Neg); Platelet Count 227 K/mm3 (150-400); Protein, Urine 1+ (Neg); RDW Coefficient Variation 12.2 % (11.7-14.2); Red Blood Cell Count 4.25 M/mm3 (3.80-5.20); Specific Gravity, Urine 1.015 (1.003-1.022); Urobilinogen, Urine NORM (Normal); White Blood Cell Count 6.34 K/mm3 (4.00-11.30)
[2021-04-21 12:14] LABS: U Amphetamine Screen Not Detected; U Barbituate Screen Not Detected; U Benzodiazapine Screen Not Detected; U Buprenorphine Screen Not Detected; U Cannabinoids Screen Not Detected; U Cocaine Screen Not Detected; U Methadone Screen Not Detected; U Methamphetamine Screen Not Detected; U Opiates Screen Not Detected; U Oxycodone Screen Not Detected; U Phencyclidine Screen Not Detected; U Propoxyphene Screen Not Detected
[2021-04-21 12:17] LABS: Bacteria Rare /hpf; Squamous Epithelial Cells Rare /hpf (Few)
[2021-04-21 12:25] LABS: Alanine Aminotransfer (ALT/SGP 35 U/L (12-78); Albumin/Globulin Ratio 0.7 (0.8-1.8); Alk Phos 46 U/L (50-136); Anion Gap 7 mmol/L (6-16); Aspartate Aminotrans (AST/SGOT 19 U/L (12-37); Bilirubin, Total 0.2 mg/dL (0.1-1.0); Blood Urea Nitrogen 10 mg/dL (8-24); Bun/Creatinine Ratio 18.7 (12.0-20.0); CO2, Blood 24 mmol/L (21-32); Calcium, Blood 9.1 mg/dL (8.5-10.1); Chloride, Blood 107 mmol/L (98-108); Creatinine, Blood 0.54 mg/dL (0.40-1.00); Ethanol (Alcohol), Blood, Med <3 mg/dL; Globulin, Blood 4.4 g/dL (2.2-4.0); Glomerular Filtration Rate >60 (60-); Glucose, Blood 142 mg/dL (70-99); Potassium, Blood 3.7 mmol/L (3.5-5.5); Salicylate <1.7 mg/dL (2.8-20.0); Sodium, Blood 138 mmol/L (136-145); Thyroxine (T4) 19.2 ug/dL (4.8-13.9); Total Protein, Blood 7.4 g/dL (6.4-8.2)
[2021-04-21 12:28] LABS: Thyroid Stimulating Hormone <0.005 uIU/mL (0.360-4.800)
[2021-04-21 16:06] LABS: Influenza A, PCR NEGATIVE (NEGATIVE); Influenza B, PCR NEGATIVE (NEGATIVE); Resp Syncytial Virus, PCR NEGATIVE (NEGATIVE); SARS-Cov-2 (COVID-19) PCR, MMC NEGATIVE (NEGATIVE)
--- NOTE | 2021-04-21 22:27 | NUR ---
PATIENT EXPRESSED THAT SHE DOES HAVE A PLAN TO COMMIT SUICIDE IF SHE WAS TO BE DISCHARGED FROM HOSPITAL, " I WOULD DO WHAT I HAVE IN THE PAST AND TAKE MY MEDICATIONS ALL AT ONCE, UPSET THAT IT NEVER SEEMS TO WORK." SHE ALSO STATED, " I HAVE NO PLANS OF SUICIDE WHILE IN THE HOSPITAL AND I FEEL SAFE HERE.". PATIENT IS ALERT AND ORIENTATED, ABLE TO MAKE NEEDS KNOWN AND WILLING TO TALK ABOUT WHAT SHE IS FEELING. DOESN'T SEEM WITHDRAWN AND HAPPY SHE IS IN THE HOSIPITAL, BED ALARM IS ON AND WEAVER ON THE PATIENT. BATHROOM IS LOCKED, BAGS REMOVED OUT OF ROOM, AND NO UNNECESSARY CORDS IN PLACE. PATIENT WAS EDUCATED ON SAFETY AND HOW TO USE THE CALL LIGHT, PATIENT HAS X 2 GOT OUT OF BED WITHOUT USING CALL LIGHT AND WAS REEDUCATED [employer] SPOTTER LIGHT.
[2021-04-22 03:53] LABS: BASOPHILS ABSOLUTE AUTO 0.02 K/mm3 (0.00-0.23); BASOPHILS PERCENT AUTO 0 % (0-2); EOSINOPHILS ABSOLUTE AUTO 0.09 K/mm3 (0.00-0.68); EOSINOPHILS PERCENT AUTO 2 % (0-6); Hematocrit 35.1 % (33.0-51.0); Hemoglobin 11.7 g/dL (11.5-16.0); IMMATURE GRAN ABSOLUTE AUTO 0.01 K/mm3 (0.00-0.10); IMMATURE GRAN PERCENT AUTO 0 % (0-1); LYMPHOCYTES ABSOLUTE AUTO 1.14 K/mm3 (0.84-5.20); LYMPHOCYTES PERCENT AUTO 24 % (21-46); MONOCYTES ABSOLUTE AUTO 0.44 K/mm3 (0.16-1.47); MONOCYTES PERCENT AUTO 9 % (4-13); Mean Corpuscular HGB 31.4 pg (26.0-34.0); Mean Corpuscular HGB Conc 33.3 g/dL (31.5-36.5); Mean Corpuscular Volume 94 fL (80-100); Mean Platelet Volume 11.3 fL (9.1-12.4); NEUTROPHILS PERCENT AUTO 65 % (41-73); Platelet Count 186 K/mm3 (150-400); RDW Coefficient Variation 12.4 % (11.7-14.2); RDW Standard Deviation 42.7 fL (35.1-46.3); Red Blood Cell Count 3.73 M/mm3 (3.80-5.20)
[2021-04-22 04:21] LABS: Alanine Aminotransfer (ALT/SGP 28 U/L (12-78); Albumin, Blood 2.6 g/dL (3.4-5.0); Albumin/Globulin Ratio 0.7 (0.8-1.8); Alk Phos 37 U/L (50-136); Anion Gap 5 mmol/L (6-16); Aspartate Aminotrans (AST/SGOT 10 U/L (12-37); Bilirubin, Total 0.3 mg/dL (0.1-1.0); Blood Urea Nitrogen 16 mg/dL (8-24); Bun/Creatinine Ratio 31.6 (12.0-20.0); CO2, Blood 25 mmol/L (21-32); Calcium, Blood 9.1 mg/dL (8.5-10.1); Chloride, Blood 110 mmol/L (98-108); Creatinine, Blood 0.51 mg/dL (0.40-1.00); Free Thyroxine 2.33 ng/dL (0.70-1.60); Globulin, Blood 3.8 g/dL (2.2-4.0); Glomerular Filtration Rate >60 (60-); Glucose, Blood 133 mg/dL (70-99); Magnesium, Blood 1.8 mg/dL (1.6-2.4); Potassium, Blood 4.3 mmol/L (3.5-5.5); Sodium, Blood 140 mmol/L (136-145); Total Protein, Blood 6.4 g/dL (6.4-8.2); Triiodothyronine, Free 8.03 pg/mL (2.18-3.98)
--- NOTE | 2021-04-22 05:28 | NUR ---
PATIENT EXPRESSED AT 0400 WHEN GETTING VITALS THIS AM THAT SHE PREFERS NOT TO HALODOL FOR ANXIETY AGAIN FELT LIKE IT INCREASED HER ANXIETY AND " DIDN'T LIKE IT MADE ME FEEL" PATIENT HAD A SNACK AND SOME STOMACH UPSET, IVAN MORRIS PATIENT SLEPT FROM [id number] THIS AM, SEEMS MORE RELAXED THIS AM, NO CHANGES ON SUICIDE IDEATION, FEELS SAFE IN THE HOSPITAL BUT WOULD TRY TO COMMIT SUICIDE IF DISCHARGED, HAS A PLAN, " TAKE ALL MY MEDICATIONS". CALL LIGHT WITHIN REACH, BED ALARM ON, SAFETY CHECK IN ROOM DONE Q4 AND BATHROOM LOCKED. PATIENT HAS BEEN USING CALL LIGHT PRIOR TO ATTEMPTING TO GET OUT OF BED.
--- NOTE | 2021-04-22 08:06 | NUR ---
Pt is refusing her Paxil, and also refusing her athletic monitor at this time. STates she is uncomfortable with the athletic monitor, and also doesn't want to take the paxil because she is afraid it will make her feel bad. States she thinks it will interfere with the anti anxiety medication she had yesterday.
--- NOTE | 2021-04-22 10:30 | NUR ---
Dr. Mejia spoke with pt, and he told me that she was agreeable to take her Paxil. She refused for me.
--- NOTE | 2021-04-22 10:31 | NUR ---
Pt is anxiously pacing in her room. Frequently asking if she can call her ride. She is very eager to leave the hospital. Two medical students and residents have asked the nursing staff to give the pt her Paxil. She continues to refuse to take it.
[2021-04-22] MEDS ORDERED: Inderal60 MG PO (12:39)
[2021-04-22] MEDS ORDERED: PARO10 PO (12:39)
[2021-04-22] MEDS ORDERED: NICO2 PO (12:39)
--- NOTE | 2021-04-22 14:17 | NUR ---
1330 Discharge instructions, safety plan and new prescriptions were reviewed with the patient. Pt states that her pharmacy is [facility], so the Rx were called into [facility]. She stated that her friends were going to give her a ride before they left for the airport, but that they had to leave earlier today so were not available to give her a ride. She was insistent on leaving right away. STates that she needs to walk, and she would walk to [facility] where she lives. Clothes and shoes that belong to her were retrieved from the [facility] crisis [facility], brought by RN from the ED to the pt's room. Pt was eager to get dressed. Several minutes later noted that the pt had left on her own, without notifying staff after she had been given her clothes.
== END 2021-04-22 13:12 | disposition home or self-care (01) | DRG 643 ==
LOC: ER 11:29 → ERHOLD 15:05 → PCU 21:02
PROVIDERS: Emergency Medicine; Nurse Practitioner Acute Care; ADMIT Hospitalist
DX: E05.00 Thyrotoxicosis with diffuse goiter without thyrotoxic crisis or storm (principal); G92.8 Other toxic encephalopathy; F31.60 Bipolar disorder, current episode mixed, unspecified; I47.2 Ventricular tachycardia; Z68.42 Body mass index [BMI] 45.0-49.9, adult; F41.9 Anxiety disorder, unspecified; I10 Essential (primary) hypertension; Z20.822 Contact with and (suspected) exposure to COVID-19; E03.9 Hypothyroidism, unspecified; E66.9 Obesity, unspecified; J45.909 Unspecified asthma, uncomplicated; K58.9 Irritable bowel syndrome, unspecified; Z95.2 Presence of prosthetic heart valve; Z87.891 Personal history of nicotine dependence; Z98.890 Other specified postprocedural states; Z79.899 Other long term (current) drug therapy
CPT/HCPCS: 0241U; 36415; 80053; 81001; 83735; 84436; 84439; 84443; 84481; 85025; 87086; 99285; A9270; G0480; J1630; J2405; J7030

== ENCOUNTER 2021-04-24 10:59 | Emergency (ER) | payer OTHER ==
[~2021-04-24] VITALS: Ht 167.6 cm; Wt 108.9 kg
[~2021-04-24 10:59] MED LIST changes: +Inderal60 MG PO; +NICO2 PO
[2021-04-24 11:33] LABS: Source, Urine Clean Catch
[2021-04-24 11:37] LABS: BASOPHILS ABSOLUTE AUTO 0.02 K/mm3 (0.00-0.23); BASOPHILS PERCENT AUTO 0 % (0-2); EOSINOPHILS ABSOLUTE AUTO 0.06 K/mm3 (0.00-0.68); EOSINOPHILS PERCENT AUTO 1 % (0-6); Hematocrit 36.7 % (33.0-51.0); Hemoglobin 12.5 g/dL (11.5-16.0); IMMATURE GRAN ABSOLUTE AUTO 0.01 K/mm3 (0.00-0.10); IMMATURE GRAN PERCENT AUTO 0 % (0-1); LYMPHOCYTES ABSOLUTE AUTO 1.21 K/mm3 (0.84-5.20); LYMPHOCYTES PERCENT AUTO 23 % (21-46); MONOCYTES PERCENT AUTO 8 % (4-13); Mean Corpuscular HGB 31.4 pg (26.0-34.0); Mean Corpuscular HGB Conc 34.1 g/dL (31.5-36.5); Mean Corpuscular Volume 92 fL (80-100); Mean Platelet Volume 11.3 fL (9.1-12.4); NEUTROPHILS ABSOLUTE AUTO 3.51 K/mm3 (1.96-9.15); NEUTROPHILS PERCENT AUTO 67 % (41-73); Platelet Count 219 K/mm3 (150-400); RDW Coefficient Variation 12.2 % (11.7-14.2); RDW Standard Deviation 41.9 fL (35.1-46.3); Red Blood Cell Count 3.98 M/mm3 (3.80-5.20); White Blood Cell Count 5.21 K/mm3 (4.00-11.30)
[2021-04-24 11:38] LABS: Bilirubin, Urine Neg (Neg); Blood, Urine Neg (Neg); Glucose Qualitative, Urine Neg (Neg); Ketones, Urine Neg (Neg); Leukocyte Esterase, Urine 1+ (Neg); Nitrite, Urine Neg (Neg); Protein, Urine Neg (Neg); Specific Gravity, Urine 1.015 (1.003-1.022); Urobilinogen, Urine NORM (Normal)
[2021-04-24 11:41] LABS: Appearance, Urine Clear (Clear); Color, Urine Yellow (P-Yellow)
[2021-04-24 11:45] LABS: Bacteria Few /hpf; Mucus Light (0-Heavy); Red Blood Cells, Urine Not Seen /hpf (0-2); Squamous Epithelial Cells Mod /hpf (Few)
[2021-04-24 11:49] LABS: U Amphetamine Screen Not Detected; U Barbituate Screen Not Detected; U Benzodiazapine Screen Not Detected; U Buprenorphine Screen Not Detected; U Cannabinoids Screen Not Detected; U Cocaine Screen Not Detected; U Methadone Screen Not Detected; U Methamphetamine Screen Not Detected; U Opiates Screen Not Detected; U Oxycodone Screen Not Detected; U Phencyclidine Screen Not Detected
[2021-04-24 11:50] LABS: U Propoxyphene Screen Not Detected
[2021-04-24 11:59] LABS: Alanine Aminotransfer (ALT/SGP 27 U/L (12-78); Albumin, Blood 2.7 g/dL (3.4-5.0); Albumin/Globulin Ratio 0.7 (0.8-1.8); Alk Phos 42 U/L (50-136); Anion Gap 8 mmol/L (6-16); Aspartate Aminotrans (AST/SGOT 18 U/L (12-37); Bilirubin, Total 0.2 mg/dL (0.1-1.0); Blood Urea Nitrogen 10 mg/dL (8-24); CO2, Blood 23 mmol/L (21-32); Chloride, Blood 109 mmol/L (98-108); Creatinine, Blood 0.44 mg/dL (0.40-1.00); Globulin, Blood 4.1 g/dL (2.2-4.0); Glomerular Filtration Rate >60 (60-); Glucose, Blood 138 mg/dL (70-99); Magnesium, Blood 1.8 mg/dL (1.6-2.4); Potassium, Blood 3.5 mmol/L (3.5-5.5); Sodium, Blood 140 mmol/L (136-145); Total Protein, Blood 6.8 g/dL (6.4-8.2)
== END 2021-04-24 13:13 | disposition home or self-care (01) ==
LOC: ER 10:59
PROVIDERS: Physician Assistant
DX: R56.9 Unspecified convulsions (principal); E05.90 Thyrotoxicosis, unspecified without thyrotoxic crisis or storm; R25.3 Fasciculation; I10 Essential (primary) hypertension; E03.9 Hypothyroidism, unspecified; J45.909 Unspecified asthma, uncomplicated; Z79.899 Other long term (current) drug therapy
CPT/HCPCS: 36415; 70450; 80053; 81001; 83735; 84443; 85025; 93005; 93010; 99284-25

== ENCOUNTER 2021-05-10 19:33 | Observation (INO) | payer OTHER ==
[~2021-05-10] VITALS: Ht 167.6 cm; Wt 136.1 kg
[2021-05-10 20:16] LABS: BASOPHILS ABSOLUTE AUTO 0.02 K/mm3 (0.00-0.23); BASOPHILS PERCENT AUTO 0 % (0-2); EOSINOPHILS ABSOLUTE AUTO 0.04 K/mm3 (0.00-0.68); EOSINOPHILS PERCENT AUTO 0 % (0-6); Hematocrit 38.8 % (33.0-51.0); Hemoglobin 13.3 g/dL (11.5-16.0); IMMATURE GRAN ABSOLUTE AUTO 0.03 K/mm3 (0.00-0.10); IMMATURE GRAN PERCENT AUTO 0 % (0-1); LYMPHOCYTES ABSOLUTE AUTO 1.69 K/mm3 (0.84-5.20); LYMPHOCYTES PERCENT AUTO 18 % (21-46); MONOCYTES ABSOLUTE AUTO 0.56 K/mm3 (0.16-1.47); MONOCYTES PERCENT AUTO 6 % (4-13); Mean Corpuscular HGB 31.3 pg (26.0-34.0); Mean Corpuscular HGB Conc 34.3 g/dL (31.5-36.5); Mean Corpuscular Volume 91 fL (80-100); NEUTROPHILS ABSOLUTE AUTO 7.31 K/mm3 (1.96-9.15); NEUTROPHILS PERCENT AUTO 76 % (41-73); Platelet Count 286 K/mm3 (150-400); RDW Coefficient Variation 11.9 % (11.7-14.2); RDW Standard Deviation 39.5 fL (35.1-46.3); Red Blood Cell Count 4.25 M/mm3 (3.80-5.20); White Blood Cell Count 9.65 K/mm3 (4.00-11.30)
[2021-05-10 20:22] LABS: Source, Urine Clean Catch
[2021-05-10 20:25] LABS: Appearance, Urine Clear (Clear); Bilirubin, Urine Neg (Neg); Blood, Urine Neg (Neg); Color, Urine Yellow (P-Yellow); Glucose Qualitative, Urine Neg (Neg); Ketones, Urine Neg (Neg); Leukocyte Esterase, Urine 3+ (Neg); Nitrite, Urine Neg (Neg); Protein, Urine Neg (Neg); Specific Gravity, Urine 1.015 (1.003-1.022); Urobilinogen, Urine NORM (Normal)
[2021-05-10 20:47] LABS: Ethanol (Alcohol), Blood, Med <3 mg/dL; Salicylate <1.7 mg/dL (2.8-20.0); Thyroid Stimulating Hormone <0.005 uIU/mL (0.360-4.800); Thyroxine (T4) 14.9 ug/dL (4.8-13.9)
[2021-05-10 20:48] LABS: Alanine Aminotransfer (ALT/SGP 36 U/L (12-78); Albumin/Globulin Ratio 0.7 (0.8-1.8); Alk Phos 61 U/L (50-136); Anion Gap 7 mmol/L (6-16); Aspartate Aminotrans (AST/SGOT 12 U/L (12-37); Bilirubin, Total 0.2 mg/dL (0.1-1.0); Blood Urea Nitrogen 19 mg/dL (8-24); Bun/Creatinine Ratio 27.3 (12.0-20.0); CO2, Blood 23 mmol/L (21-32); Chloride, Blood 108 mmol/L (98-108); Globulin, Blood 4.5 g/dL (2.2-4.0); Glomerular Filtration Rate >60 (60-); Glucose, Blood 115 mg/dL (70-99); Potassium, Blood 3.8 mmol/L (3.5-5.5); Sodium, Blood 138 mmol/L (136-145); Total Protein, Blood 7.5 g/dL (6.4-8.2)
[2021-05-10 20:50] LABS: Acetaminophen, Random <2.0 ug/mL (10.0-30.0)
[2021-05-10 20:55] LABS: U Amphetamine Screen Not Detected; U Barbituate Screen Not Detected; U Benzodiazapine Screen Not Detected; U Buprenorphine Screen Not Detected; U Cannabinoids Screen Not Detected; U Cocaine Screen Not Detected; U Methadone Screen Not Detected; U Methamphetamine Screen Not Detected; U Opiates Screen Not Detected; U Oxycodone Screen Not Detected; U Phencyclidine Screen Not Detected; U Propoxyphene Screen Not Detected
[2021-05-10 21:04] LABS: Red Blood Cells, Urine 0-2 /hpf (0-2)
[2021-05-10 21:05] LABS: Bacteria Mod /hpf; Squamous Epithelial Cells Few /hpf (Few)
[2021-05-10 22:20] LABS: Influenza A, PCR NEGATIVE (NEGATIVE); Influenza B, PCR NEGATIVE (NEGATIVE); Resp Syncytial Virus, PCR NEGATIVE (NEGATIVE); SARS-Cov-2 (COVID-19) PCR, MMC NEGATIVE (NEGATIVE)
[2021-05-11 00:27] LABS: Triiodothyronine, Free 5.57 pg/mL (2.18-3.98)
== END 2021-05-11 15:25 | disposition home or self-care (01) ==
LOC: ER 19:33 → EOR 19:34
PROVIDERS: Physician Assistant; ADMIT Student in an Organized Health Care Education/Training Program
DX: F25.1 Schizoaffective disorder, depressive type (principal); F32.9 Major depressive disorder, single episode, unspecified; F41.9 Anxiety disorder, unspecified; I10 Essential (primary) hypertension; J45.909 Unspecified asthma, uncomplicated; E05.90 Thyrotoxicosis, unspecified without thyrotoxic crisis or storm; E66.9 Obesity, unspecified; F17.220 Nicotine dependence, chewing tobacco, uncomplicated; Z79.890 Hormone replacement therapy; Z79.899 Other long term (current) drug therapy; Z20.822 Contact with and (suspected) exposure to COVID-19; Z95.2 Presence of prosthetic heart valve; Z86.718 Personal history of other venous thrombosis and embolism; Z68.42 Body mass index [BMI] 45.0-49.9, adult
CPT/HCPCS: 0241U; 36415; 80053; 81001; 84436; 84443; 84481; 85025; 87086; 99285; A9270; G0378; G0480

== ENCOUNTER 2021-05-12 15:45 | Emergency (ER) | payer OTHER | END 2021-05-12 16:10 | disposition left against medical advice (07) | LOC: ER 15:45 | DX: Z53.21 Procedure and treatment not carried out due to patient leaving prior to being seen by health care provider (principal) ==

== ENCOUNTER 2021-05-12 17:29 | Emergency (ER) | payer OTHER ==
[~2021-05-12] VITALS: Ht 165.1 cm; Wt 136.1 kg
== END 2021-05-12 19:01 | disposition home or self-care (01) ==
LOC: ER 17:29
DX: F32.A Depression, unspecified (principal); I10 Essential (primary) hypertension; E03.9 Hypothyroidism, unspecified; J45.909 Unspecified asthma, uncomplicated; Z79.899 Other long term (current) drug therapy
CPT/HCPCS: 99284; A9270

== ENCOUNTER → 2022-06-14 | Outpatient (CLI) | payer OTHER ==
[2022-06-14 10:07] LABS: BASOPHILS ABSOLUTE AUTO 0.01 K/mm3 (0.00-0.23); BASOPHILS PERCENT AUTO 0 % (0-2); EOSINOPHILS ABSOLUTE AUTO 0.03 K/mm3 (0.00-0.68); EOSINOPHILS PERCENT AUTO 1 % (0-6); Hematocrit 40.3 % (33.0-51.0); Hemoglobin 13.6 g/dL (11.5-16.0); IMMATURE GRAN PERCENT AUTO 0 % (0-1); LYMPHOCYTES ABSOLUTE AUTO 1.15 K/mm3 (0.84-5.20); LYMPHOCYTES PERCENT AUTO 36 % (21-46); MONOCYTES ABSOLUTE AUTO 0.24 K/mm3 (0.16-1.47); MONOCYTES PERCENT AUTO 7 % (4-13); Mean Corpuscular HGB 29.9 pg (26.0-34.0); Mean Corpuscular HGB Conc 33.7 g/dL (31.5-36.5); Mean Corpuscular Volume 89 fL (80-100); Mean Platelet Volume 11.7 fL (9.1-12.4); NEUTROPHILS ABSOLUTE AUTO 1.81 K/mm3 (1.96-9.15); NEUTROPHILS PERCENT AUTO 56 % (41-73); Platelet Count 165 K/mm3 (150-400); RDW Standard Deviation 39.1 fL (35.1-46.3); Red Blood Cell Count 4.55 M/mm3 (3.80-5.20); White Blood Cell Count 3.24 K/mm3 (4.00-11.30)
[2022-06-14 14:41] LABS: Alanine Aminotransfer (ALT/SGP 50 U/L (12-78); Albumin, Blood 3.3 g/dL (3.4-5.0); Albumin/Globulin Ratio 0.8 (0.8-1.8); Alk Phos 82 U/L (50-136); Anion Gap 11 mmol/L (6-16); Aspartate Aminotrans (AST/SGOT 24 U/L (12-37); Bilirubin, Total 0.3 mg/dL (0.1-1.0); Blood Urea Nitrogen 11 mg/dL (8-24); Bun/Creatinine Ratio 18.7 (12.0-20.0); CHOL/HDL RATIO 3.5; CO2, Blood 20 mmol/L (21-32); Calcium, Blood 9.1 mg/dL (8.5-10.1); Chloride, Blood 109 mmol/L (98-108); Cholesterol 155 mg/dL (50-200); Creatinine, Blood 0.59 mg/dL (0.40-1.00); Globulin, Blood 4.1 g/dL (2.2-4.0); Glomerular Filtration Rate 109 (60-); Glucose, Blood 243 mg/dL (70-99); HDL Cholesterol 44 mg/dL (>39); LDL/HDL RATIO 1.9; Low Density Lipoprotein Chol 82 mg/dL (0-110); Potassium, Blood 3.4 mmol/L (3.5-5.5); Sodium, Blood 140 mmol/L (136-145); Total Protein, Blood 7.4 g/dL (6.4-8.2); Triglycerides 144 mg/dL (30-160); Very Low Density Lipoprot Chol 28 mg/dL (6-32)
== END | disposition home or self-care (01) ==
LOC: LAB SHORT 07:38 → LAB 07:38
PROVIDERS: Nurse Practitioner Psychiatric/Mental Health
DX: F25.1 Schizoaffective disorder, depressive type (principal)
CPT/HCPCS: 36415; 80053; 80061; 85025

== ENCOUNTER → 2025-05-26 | Outpatient (CLI) | payer OTHER ==
[2025-05-26 20:38] LABS: BASOPHILS ABSOLUTE AUTO 0.04 K/mm3 (0.00-0.23); BASOPHILS PERCENT AUTO 1 % (0-2); EOSINOPHILS ABSOLUTE AUTO 0.05 K/mm3 (0.00-0.68); EOSINOPHILS PERCENT AUTO 1 % (0-6); Hematocrit 37.5 % (33.0-51.0); Hemoglobin 12.7 g/dL (11.5-16.0); IMMATURE GRAN ABSOLUTE AUTO 0.01 K/mm3 (0.00-0.10); IMMATURE GRAN PERCENT AUTO 0 % (0-1); LYMPHOCYTES ABSOLUTE AUTO 1.75 K/mm3 (0.84-5.20); LYMPHOCYTES PERCENT AUTO 25 % (21-46); MONOCYTES ABSOLUTE AUTO 0.32 K/mm3 (0.16-1.47); MONOCYTES PERCENT AUTO 5 % (4-13); Mean Corpuscular HGB Conc 33.9 g/dL (31.5-36.5); Mean Corpuscular Volume 96 fL (80-100); NEUTROPHILS ABSOLUTE AUTO 4.97 K/mm3 (1.96-9.15); NEUTROPHILS PERCENT AUTO 70 % (41-73); NRBC ABSOLUTE 0.00 K/mm3 (0.00-0.02); NRBC Auto 0.0 /100 WBC (0.0-0.2); Platelet Count 189 K/mm3 (150-400); RDW Coefficient Variation 12.1 % (11.7-14.2); RDW Standard Deviation 42.2 fL (35.1-46.3)
[2025-05-26 20:47] LABS: Alanine Aminotransfer (ALT/SGP 94 U/L (12-78); Albumin, Blood 3.5 g/dL (3.4-5.0); Albumin/Globulin Ratio 0.8 (0.8-1.8); Anion Gap 9 mmol/L (3-11); Aspartate Aminotrans (AST/SGOT 62 U/L (12-37); Bilirubin, Total 0.4 mg/dL (0.1-1.0); Blood Urea Nitrogen 19 mg/dL (8-24); CHOL/HDL RATIO 4.2; CO2, Blood 24 mmol/L (21-32); Calcium, Blood 9.3 mg/dL (8.5-10.1); Chloride, Blood 108 mmol/L (98-108); Cholesterol 163 mg/dL (50-200); Creatinine, Blood 1.19 mg/dL (0.40-1.00); Globulin, Blood 4.4 g/dL (2.2-4.0); Glucose, Blood 157 mg/dL (70-99); HDL Cholesterol 39 mg/dL (>39); LDL/HDL RATIO 1.7; Low Density Lipoprotein Chol 67 mg/dL (0-110); Potassium, Blood 4.3 mmol/L (3.5-5.5); Sodium, Blood 137 mmol/L (136-145); Total Protein, Blood 7.9 g/dL (6.4-8.2); Triglycerides 286 mg/dL (30-160); Very Low Density Lipoprot Chol 57 mg/dL (6-32)
== END | disposition home or self-care (01) ==
LOC: LAB 16:12 → LAB SHORT 16:12
PROVIDERS: Nurse Practitioner Family
DX: Z00.00 Encounter for general adult medical examination without abnormal findings (principal)
CPT/HCPCS: 80053; 80061; 85025